=== PATIENT | female | born 1960 | race Caucasian/White ===

== ENCOUNTER 2022-07-27 10:30 | Outpatient (CLI) ==
[2022-07-27 10:56] LABS: BILIRUBIN,URINE NEGATIVE (NEGATIVE); CLARITY,URINE CLEAR (CLEAR); GLUCOSE, URINE (UA) NEGATIVE (NEGATIVE); KETONES,URINE (UA) 40 mg/dL (NEGATIVE); LEUKOCYTE ESTERASE, URINE LARGE (NEGATIVE); NITRITE,URINE POSITIVE (NEGATIVE); OCCULT BLOOD,URINE LARGE (NEGATIVE); PROTEIN,URINE 100 mg/dL (NEGATIVE); UROBILINOGEN,URINE 0.2 (NORMAL) E.U./dL (NORMAL)
[2022-07-27 11:02] LABS: WBC,URINE >25 /HPF (0-5)
[2022-07-27 11:03] LABS: BACTERIA,URINE Moderate /HPF (None Seen); SQUAMOUS EPITHELIAL CELL,UR FEW Squamous (<= Few); WBC CLUMPS,URINE PRESENT
== END 2022-07-27 10:31 | disposition home or self-care (01) ==
LOC: LAB.R 10:31
PROVIDERS: ATTEND Family Medicine
DX: N39.0 Urinary tract infection, site not specified (principal)
CPT/HCPCS: 81001; 87077; 87086; 87181

== ENCOUNTER 2022-08-05 06:26 | Outpatient (CLI) | payer SELFPAY | END 2022-08-05 06:27 | disposition critical access hospital (66) | LOC: EMS 06:26 | DX: R10.30 Lower abdominal pain, unspecified (principal); R10.2 Pelvic and perineal pain; G35 Multiple sclerosis | CPT/HCPCS: A0425; A0429 ==

== ENCOUNTER 2022-08-05 13:40 | Outpatient (CLI) | payer SELFPAY | END 2022-08-05 13:41 | disposition home or self-care (01) | LOC: EMS 13:40 | PROVIDERS: ATTEND Emergency Medicine | DX: T83.9XXA Unspecified complication of genitourinary prosthetic device, implant and graft, initial encounter (principal); G35 Multiple sclerosis; Z74.01 Bed confinement status | CPT/HCPCS: A0425; A0428 ==

== ENCOUNTER 2022-08-11 11:20 | Outpatient (CLI) | payer SELFPAY ==
[2022-08-11 11:43] LABS: BASOPHILS # (AUTO) 0.1 10^3/uL (0.0-0.1); BASOPHILS % (AUTO) 1.8 %; EOSINOPHILS # (AUTO) 0.2 10^3/uL (0.0-0.7); EOSINOPHILS % (AUTO) 5.1 %; HCT - HEMATOCRIT 37.1 % (37.0-47.0); HGB - HEMOGLOBIN 12.1 g/dL (12.0-16.0); LYMPHOCYTES # (AUTO) 0.4 10^3/uL (1.5-3.5); LYMPHOCYTES % (AUTO) 10.1 %; MEAN CORPUSCULAR HEMOGLOBIN 29.2 pg (27.0-31.0); MEAN CORPUSCULAR HGB CONC 32.6 g/dL (32.0-36.0); MEAN CORPUSCULAR VOLUME 89.4 fL (81.0-99.0); MEAN PLATELET VOLUME 9.2 fL (7.9-10.8); MONOCYTES # (AUTO) 0.6 10^3/uL (0.0-1.0); MONOCYTES % (AUTO) 15.7 %; NEUTROPHILS # (AUTO) 2.7 10^3/uL (1.5-6.6); PLT - PLATELET COUNT 407 10^3/uL (130-450); RED BLOOD COUNT 4.15 10^6/uL (4.20-5.40); RED CELL DISTRIBUTION WIDTH 14.2 % (12.0-15.0)
[2022-08-11 11:46] LABS: ALBUMIN 3.7 g/dL (3.2-5.5); ALBUMIN/GLOBULIN RATIO 1.3 (1.0-2.2); BILIRUBIN,TOTAL 0.8 mg/dL (0.2-1.0); CALCIUM 9.8 mg/dL (8.5-10.3); CREATININE 0.5 mg/dL (0.4-1.0); TOTAL PROTEIN 6.5 g/dL (6.7-8.2)
== END 2022-08-11 11:21 | disposition home or self-care (01) ==
LOC: LAB.R 11:20
PROVIDERS: ATTEND Family Medicine
DX: T83.511D Infection and inflammatory reaction due to indwelling urethral catheter, subsequent encounter (principal)
CPT/HCPCS: 80053; 85025

== ENCOUNTER 2022-08-18 10:01 | Outpatient (CLI) | payer SELFPAY ==
[2022-08-18 10:16] LABS: BASOPHILS # (AUTO) 0.1 10^3/uL (0.0-0.1); BASOPHILS % (AUTO) 1.6 %; EOSINOPHILS # (AUTO) 0.2 10^3/uL (0.0-0.7); EOSINOPHILS % (AUTO) 6.4 %; HCT - HEMATOCRIT 35.6 % (37.0-47.0); HGB - HEMOGLOBIN 11.4 g/dL (12.0-16.0); LYMPHOCYTES # (AUTO) 0.5 10^3/uL (1.5-3.5); LYMPHOCYTES % (AUTO) 14.1 %; MEAN CORPUSCULAR HEMOGLOBIN 28.7 pg (27.0-31.0); MEAN CORPUSCULAR VOLUME 89.7 fL (81.0-99.0); MEAN PLATELET VOLUME 9.2 fL (7.9-10.8); MONOCYTES # (AUTO) 0.3 10^3/uL (0.0-1.0); MONOCYTES % (AUTO) 8.5 %; NEUTROPHILS # (AUTO) 2.6 10^3/uL (1.5-6.6); NEUTROPHILS % (AUTO) 68.9 %; PLT - PLATELET COUNT 419 10^3/uL (130-450); RED BLOOD COUNT 3.97 10^6/uL (4.20-5.40); RED CELL DISTRIBUTION WIDTH 13.6 % (12.0-15.0); WHITE BLOOD COUNT 3.8 x10^3/uL (4.8-10.8)
[2022-08-18 10:29] LABS: ALBUMIN 3.6 g/dL (3.2-5.5); ALBUMIN/GLOBULIN RATIO 1.3 (1.0-2.2); BILIRUBIN,TOTAL 0.8 mg/dL (0.2-1.0); CALCIUM 9.4 mg/dL (8.5-10.3); CREATININE 0.4 mg/dL (0.4-1.0); POTASSIUM 3.7 mmol/L (3.5-5.0); TOTAL PROTEIN 6.3 g/dL (6.7-8.2)
== END 2022-08-18 10:02 | disposition home or self-care (01) ==
LOC: LAB.R 10:01
PROVIDERS: ATTEND Family Medicine
DX: T83.511D Infection and inflammatory reaction due to indwelling urethral catheter, subsequent encounter (principal)
CPT/HCPCS: 80053; 85025

== ENCOUNTER 2022-08-23 12:15 | Outpatient (CLI) | payer SELFPAY ==
[2022-08-23 12:30] LABS: BILIRUBIN,URINE NEGATIVE (NEGATIVE); GLUCOSE, URINE (UA) NEGATIVE (NEGATIVE); KETONES,URINE (UA) NEGATIVE (NEGATIVE); LEUKOCYTE ESTERASE, URINE MODERATE (NEGATIVE); NITRITE,URINE NEGATIVE (NEGATIVE); OCCULT BLOOD,URINE MODERATE (NEGATIVE); PROTEIN,URINE NEGATIVE (NEGATIVE); UROBILINOGEN,URINE 0.2 (NORMAL) E.U./dL (NORMAL)
[2022-08-23 12:36] LABS: CLARITY,URINE CLEAR (CLEAR)
[2022-08-23 13:10] LABS: BACTERIA,URINE Few /HPF (None Seen); RBC,URINE 0-5 /HPF (0-5); SQUAMOUS EPITHELIAL CELL,UR FEW Squamous (<= Few); WBC CLUMPS,URINE PRESENT; WBC,URINE >25 /HPF (0-5)
== END 2022-08-23 12:16 | disposition home or self-care (01) ==
LOC: LAB.R 12:15
PROVIDERS: ATTEND Family Medicine
DX: N39.0 Urinary tract infection, site not specified (principal)
CPT/HCPCS: 81001; 87086

== ENCOUNTER 2022-09-07 21:20 | Outpatient (CLI) | payer SELFPAY | END 2022-09-07 21:21 | disposition critical access hospital (66) | LOC: EMS 21:20 | DX: T83.021A Displacement of indwelling urethral catheter, initial encounter (principal); R10.2 Pelvic and perineal pain | CPT/HCPCS: A0425; A0429 ==

== ENCOUNTER 2022-09-07 21:33 | Emergency (ER) | payer SELFPAY ==
--- NOTE | 2022-09-07 21:32 | ED Physician Documentation ---
History of Present Illness - Stated complaint Stated Complaint: BLEEDING FROM CATHETER - History obtained from History obtained from: Patient, EMS - History of Present Illness Timing: How many days ago (2-3) - Additonal information Additional information: [place]. Patient is bedridden due to MS, has indwelling nolasco catheter for few years. She presents due to 1-2 days of leakage of urine around catheter as well as burning discomfort at nolasco insertion site and suprapubic discomfort and intermittent gross hematuria in nolasco bag as well as in urine that is leaking around the catheter. She says these symptoms have been associated with UTI in the past. Patient was T+R from this ED one month ago for similar c/o, given antibiotics and, per patient, she subsequently had ten days of IV antibiotic via a PICC line. She says she feels that the antibiotics and PICC were discontinued too early , as she felt she still had UTI. Denies fever Review of Systems Constitutional: denies: Fever, Chills, Sweats GI: denies: Abdominal Pain : reports: Incontinent, Hematuria PD PAST MEDICAL HISTORY - Past Medical History Past Medical History: Yes Cardiovascular: Hypertension Endocrine/Autoimmune: HyPOthyroidism Other Past Medical History: multiple sclerosis - Present Medications Home Medications: Ambulatory Orders Medication Instructions Recorded Confirmed Baclofen [Lioresal] 10 mg PO DAILY 08/05/22 09/07/22 Baclofen [Lioresal] 20 mg PO HS 08/05/22 09/07/22 Dalfampridine [Ampyra] 10 mg PO BID 08/05/22 09/07/22 Diroximel Fumarate [Vumerity] 2 tab PO BID 08/05/22 09/07/22 Levothyroxine Sodium [Synthroid] 1 tab PO DAILY 08/05/22 09/07/22 Oxybutynin [Ditropan] 5 mg PO BID 08/05/22 09/07/22 Potassium Chloride 2 tab PO DAILY 08/05/22 09/07/22 amLODIPine [Norvasc] 5 mg PO DAILY 08/05/22 09/07/22 Ciprofloxacin HCl [Cipro] 500 mg PO BID #20 tablet 09/07/22 - Allergies Allergies/Adverse Reactions: Allergies Allergy/AdvReac Type Severity Reaction Status Date / Time thyroid, pork Allergy Respiratory Verified 09/07/22 21:37 [From [place] Thyroid] tizanidine Allergy Respiratory Verified 09/07/22 21:37 PD ED PE NORMAL - Vitals Vital signs reviewed: Yes - General General: Alert and oriented X 3, No acute distress, Well developed/nourished - Cardiac Cardiac: RRR - Respiratory Respiratory: No respiratory distress, Clear bilaterally - Abdomen Abdomen: Soft, Non tender PD ED PE EXPANDED - Female Female : Security Control Room Officer present (RN L[place]), Other (Nolasco cather in place; no vaginal erythema nor discharge, no bleeding noted. There is clear yellow urine in nolasco collection bag. No grossly visible blood in urine) Results - Vitals Vitals: Oxygen O2 Source Room air - Labs Labs: Microbiology 09/07/22 21:58 Urine Culture - Preliminary Urine,Catheterized Laboratory Tests 09/07/22 21:58 Urine Color YELLOW Urine Clarity HAZY Urine pH 6.0 Ur Specific [place] 1.010 Urine Protein TRACE Urine Glucose (UA) NEGATIVE Urine Ketones NEGATIVE Urine Occult Blood LARGE H Urine Nitrite POSITIVE H Urine Bilirubin NEGATIVE Urine Urobilinogen 0.2 (NORMAL) Ur Leukocyte Esterase LARGE H Urine RBC 6-10 H Urine WBC >25 H Ur Epithelial Cells FEW Renal Tubular Ur Squamous Epith Cells FEW Squamous Urine Bacteria Few Ur Microscopic Review INDICATED Urine Culture Comments INDICATED PD MEDICAL DECISION MAKING - ED course Complexity details: reviewed old records, considered differential, d/w patient ED course: ED RN changed nolasco catheter due to patient reporting 1-2 days of leakage of urine around the device. Patient says her symptoms of urinary burning and suprapubic discomfort are c/w previous UTIs although her description is more of a chronic, indolent course rather than acute and intermittent. We discussed the concept of colonization of the bladder with bacteria with indwelling nolasco c sheba and she is quite familiar with this concept but insists the symptoms she has had the past 1-2 days are an exacerbation rather than ongoing. She is given 1 gram IM rocephin and rx cipro. No indication for emergent testing beyond UA and no indication for inpatient treatment. Departure - Departure Disposition: 01 Home, Self Care Clinical Impression: Chronic indwelling Nolasco catheter UTI (urinary tract infection) Qualifiers: Urinary tract infection type: catheter-associated UTI Indwelling urinary catheter type: indwelling urethral catheter Encounter type: initial encounter Qualified Code(s): T83.511A - Infection and inflammatory reaction due to indwelling urethral catheter, initial encounter Condition: Good Instructions: ED Catheter Care Elder, ED UTI Cystitis Female Prescriptions: Ciprofloxacin HCl [Cipro] 500 mg PO BID #20 tablet Comments: A prescription for an antibiotic (cipro) has been electronically submitted to [facility] pharmacy in [place]. Your catheter was changed today due to leaking around the catheter. Discharge Date/Time: 09/07/22 23:16
[2022-09-07] MEDS ORDERED: cefTRIAXone 1 GM VIAL IM STA (21:59)
[2022-09-07] MEDS ORDERED: LIDOCAINE 1% 2 ML VIAL MC ONE (21:59)
[2022-09-07] MEDS ORDERED: CIPROFLOXACIN 250 MG TABLET PO STA (22:00)
[2022-09-07 22:06] LABS: BILIRUBIN,URINE NEGATIVE (NEGATIVE); GLUCOSE, URINE (UA) NEGATIVE (NEGATIVE); KETONES,URINE (UA) NEGATIVE (NEGATIVE); LEUKOCYTE ESTERASE, URINE LARGE (NEGATIVE); NITRITE,URINE POSITIVE (NEGATIVE); OCCULT BLOOD,URINE LARGE (NEGATIVE); PROTEIN,URINE TRACE mg/dL (NEGATIVE); UROBILINOGEN,URINE 0.2 (NORMAL) E.U./dL (NORMAL)
[2022-09-07 22:08] LABS: CLARITY,URINE HAZY (CLEAR)
[2022-09-07] MEDS ORDERED: traMADol 50 MG TABLET PO STA (22:15)
[2022-09-07 22:18] LABS: BACTERIA,URINE Few /HPF (None Seen); EPITHELIAL CELLS,UR FEW Renal Tubular /HPF (<= Few); SQUAMOUS EPITHELIAL CELL,UR FEW Squamous (<= Few); WBC,URINE >25 /HPF (0-5)
[2022-09-07 22:25] VITALS: BP 124/94
== END 2022-09-07 23:16 | disposition home or self-care (01) ==
LOC: EDUNIT# → ED 21:33
DX: T83.511A Infection and inflammatory reaction due to indwelling urethral catheter, initial encounter (principal); T83.031A Leakage of indwelling urethral catheter, initial encounter; Y84.6 Urinary catheterization as the cause of abnormal reaction of the patient, or of later complication, without mention of misadventure at the time of the procedure; G35 Multiple sclerosis; I10 Essential (primary) hypertension; E03.9 Hypothyroidism, unspecified
CPT/HCPCS: 51702; 81001; 87077; 87086; 87181; 96372; 99284; A9270; 81003

== ENCOUNTER 2022-09-07 23:05 | Outpatient (CLI) | payer SELFPAY | END 2022-09-07 23:06 | disposition home or self-care (01) | LOC: EMS 23:05 | PROVIDERS: ATTEND Emergency Medicine | DX: Z74.01 Bed confinement status (principal) | CPT/HCPCS: A0425; A0428 ==

== ENCOUNTER 2022-11-30 13:56 | Outpatient (CLI) | payer SELFPAY ==
[2022-11-30 14:14] LABS: BILIRUBIN,URINE NEGATIVE (NEGATIVE); GLUCOSE, URINE (UA) NEGATIVE (NEGATIVE); KETONES,URINE (UA) NEGATIVE (NEGATIVE); LEUKOCYTE ESTERASE, URINE LARGE (NEGATIVE); NITRITE,URINE NEGATIVE (NEGATIVE); OCCULT BLOOD,URINE SMALL (NEGATIVE); PH,URINE 8.5 PH (5.0-7.5); PROTEIN,URINE 100 mg/dL (NEGATIVE); UROBILINOGEN,URINE 0.2 (NORMAL) E.U./dL (NORMAL)
[2022-11-30 14:25] LABS: CLARITY,URINE TURBID (CLEAR)
[2022-11-30 14:26] LABS: BACTERIA,URINE Moderate /HPF (None Seen); CRYSTALS,URINE 6-10 Triple Phos /LPF; MUCUS,URINE Marked Strands; SQUAMOUS EPITHELIAL CELL,UR RARE Squamous (<= Few)
== END 2022-11-30 13:57 | disposition home or self-care (01) ==
LOC: LAB 13:56
PROVIDERS: ATTEND Internal Medicine
DX: R82.90 Unspecified abnormal findings in urine (principal)
CPT/HCPCS: 81001; 87077; 87086; 87181

== ENCOUNTER 2022-12-12 12:46 | Outpatient (CLI) | payer SELFPAY ==
--- NOTE | 2022-12-12 17:47 | CT Report ---
PROCEDURE: ABDOMEN/PELVIS WO INDICATIONS: HIST RENAL STONES TECHNIQUE: Noncontrast 5 mm thick sections acquired from the diaphragms to the symphysis. 5 mm coronal and sagi ttal reformats were then performed. For radiation dose reduction, the following was used: automated exposure control, adjustment of mA and/or kV according to patient size. COMPARISON: None. FINDINGS: Image quality: Excellent. ABDOMEN: Lung bases: Platelike bibasilar atelectatic changes and calcified right lung base nodule. Heart size is normal. No hiatal hernia. Kidneys: Staghorn calcification filling much of the right posterior intrarenal collecting system exte nding partly into the renal pelvis. Hounsfield units measured at 980. There is probably urothelial th ickening of the renal pelvis. There is mild proximal right hydroureter and mild periureteric inflamma tion. No ureteral calculi. The left kidney contains a nonobstructing rectangular 1.1 cm intrarenal pe lvic calcification with Hounsfield units of 606 and a punctate nonobstructing lower pole calcificatio n. No hydronephrosis, hydroureter, or ureteral calculus. Urinary bladder: There is a Friedman catheter balloon filling much of the urinary bladder. There appears to be a calculus at the urethrovesical junction adjacent to the follicular catheter tubing measuring 8 mm. Other Solid organs: Liver and spleen are normal in size. Gallbladder is surgically absent. Pancrea s is normal in contours. No adrenal nodules. Peritoneum and bowel: The stomach is within normal limits. Small bowel loops are decompressed. Increa sed quantity of solid stool present throughout loops of colon. No pericolonic inflammation. Nodes and vessels: No retroperitoneal or mesenteric adenopathy by size criteria. Aorta and inferior vena cava are normal in caliber. Miscellaneous: No ventral hernias. PELVIS: Genitourinary: The uterus is absent. Ovarian tissue is not seen on CT. Miscellaneous: No inguinal hernias or adenopathy. Moderate anterior and posterior pelvic floor prola pse. Bones: No suspicious bony lesions. Mild central superior endplate depression of T12. No other suspic ious bone lesions. There is exaggerated lumbar lordosis. IMPRESSION: 1. Staghorn calculus in the right kidney as described. There is likely reactive urothelial thickening . 2. No evidence of obstructive uropathy. 3. Left intrarenal calculi. Less extensive than the right. 4. 8mm urinary bladder calculus. The bladder is catheterized. 5. Mild central T12 superior endplate compression fracture, probably osteoporotic given morphology. Reviewed by: Radha Theodore MD on 12/12/2022 4:46 PM [place] Approved by: Radha Theodore MD on 12/12/2022 4:46 PM [place] Station ID: [id number]
== END 2022-12-12 12:47 | disposition home or self-care (01) ==
LOC: DI 12:46
PROVIDERS: ATTEND Family Medicine
DX: N20.0 Calculus of kidney (principal); N21.0 Calculus in bladder; M48.54XA Collapsed vertebra, not elsewhere classified, thoracic region, initial encounter for fracture; Z87.442 Personal history of urinary calculi

== ENCOUNTER 2022-12-21 16:23 | Outpatient (CLI) | payer MEDICARE ==
[2022-12-21 16:40] LABS: BASOPHILS # (AUTO) 0.1 10^3/uL (0.0-0.1); BASOPHILS % (AUTO) 1.1 %; EOSINOPHILS # (AUTO) 0.2 10^3/uL (0.0-0.7); EOSINOPHILS % (AUTO) 3.4 %; HCT - HEMATOCRIT 39.4 % (37.0-47.0); HGB - HEMOGLOBIN 12.7 g/dL (12.0-16.0); LYMPHOCYTES # (AUTO) 0.4 10^3/uL (1.5-3.5); LYMPHOCYTES % (AUTO) 6.7 %; MEAN CORPUSCULAR HEMOGLOBIN 28.8 pg (27.0-31.0); MEAN CORPUSCULAR HGB CONC 32.2 g/dL (32.0-36.0); MEAN CORPUSCULAR VOLUME 89.3 fL (81.0-99.0); MEAN PLATELET VOLUME 9.1 fL (7.9-10.8); MONOCYTES # (AUTO) 0.5 10^3/uL (0.0-1.0); MONOCYTES % (AUTO) 9.1 %; NEUTROPHILS # (AUTO) 4.2 10^3/uL (1.5-6.6); NEUTROPHILS % (AUTO) 79.3 %; PLT - PLATELET COUNT 392 10^3/uL (130-450); RED BLOOD COUNT 4.41 10^6/uL (4.20-5.40); RED CELL DISTRIBUTION WIDTH 13.4 % (12.0-15.0); WHITE BLOOD COUNT 5.3 x10^3/uL (4.8-10.8)
[2022-12-21 16:50] LABS: ALBUMIN 3.7 g/dL (3.2-5.5); ALBUMIN/GLOBULIN RATIO 1.3 (1.0-2.2); BILIRUBIN,TOTAL 0.9 mg/dL (0.2-1.0); CALCIUM 9.4 mg/dL (8.5-10.3); CREATININE 0.4 mg/dL (0.4-1.0); TOTAL PROTEIN 6.5 g/dL (6.7-8.2)
== END 2022-12-21 23:59 | disposition home or self-care (01) ==
LOC: LAB.R 16:23
PROVIDERS: ATTEND Psychiatry & Neurology Neurology
DX: G35 Multiple sclerosis (principal)
CPT/HCPCS: 80053; 85025

== ENCOUNTER 2022-12-30 14:47 | Outpatient (CLI) | payer MEDICARE | END 2022-12-30 14:48 | disposition home or self-care (01) | LOC: LAB 14:47 | PROVIDERS: ATTEND Specialist | DX: N39.0 Urinary tract infection, site not specified (principal); Z87.440 Personal history of urinary (tract) infections | CPT/HCPCS: 87077; 87086; 87181 ==

== ENCOUNTER 2023-02-27 14:42 | Outpatient (CLI) | payer MEDICARE | END 2023-02-27 23:59 | disposition critical access hospital (66) | LOC: EMS 14:42 | DX: R51.9 Headache, unspecified (principal); R60.0 Localized edema; R23.8 Other skin changes | CPT/HCPCS: A0425; A0429 ==

== ENCOUNTER 2023-02-27 14:50 | Emergency (ER) | payer MEDICARE ==
--- NOTE | 2023-02-27 14:56 | ED Physician Documentation ---
PD HPI HEENT - Stated complaint Stated Complaint: L SIDE FACIAL PX - History obtained from History obtained from: Patient - History of Present Illness Timing - onset: How many days ago (4) Timing - duration: Days (4) Timing - details: Gradual onset (4 days ago - onset of left forehead and scalp pain extended to periorbital area. Developed start of blistering tender rash 2 days ago same area. Online search led to likely shingles. Had discussion with pmd office today and referred to ER to ensure left eye not involved (rash and pain periorbital).), Still present Location: Other (left frontal scalp and forehead to periorbital area.) Improves: No: Medication (tried tylenol and ibuprofen without improvement. Severe pain last night into today.) Associated symptoms: Facial swelling (just in area of rash.). No: Fever, Congestion, Headache Similar symptoms before: Has not had sx before Recently seen: Clinic (discussed with PCP today and referred to ER.) Review of Systems Constitutional: reports: Myalgias, Fatigue. denies: Fever, Chills Eyes: denies: Loss of vision, Photophobia Nose: denies: Rhinorrhea / runny nose, Congestion Throat: denies: Sore throat GI: reports: Nausea. 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 HEENT: Tonsil/Adenoidectomy - Present Medications Home Medications: Ambulatory Orders Medication Instructions Recorded Confirmed Baclofen [Lioresal] 10 mg PO BID 08/05/22 02/27/23 Baclofen [Lioresal] 20 mg PO HS 08/05/22 02/27/23 Dalfampridine [Ampyra] 10 mg PO BID 08/05/22 02/27/23 Levothyroxine Sodium [Synthroid] 1 tab PO DAILY 08/05/22 02/27/23 Oxybutynin [Ditropan] 5 mg PO TID 08/05/22 02/27/23 Potassium Chloride 2 tab PO DAILY 08/05/22 02/27/23 amLODIPine [Norvasc] 5 mg PO DAILY 08/05/22 02/27/23 Amitriptyline [Elavil] 10 mg PO QPM 20 Days #20 tablet 02/27/23 Ibuprofen [Motrin] 1 tablet PO Q8H PRN 02/27/23 02/27/23 Magnesium Oxide [Magnesium] 400 mg PO DAILY 02/27/23 02/27/23 Mupirocin 2% Oint [Bactroban 2% 1 applic TOP TID #15 gm 02/27/23 Oint] Ondansetron Odt [Zofran] 4 mg TL Q6H PRN #20 tablet 02/27/23 Ospemifene [Osphena] 60 mg PO DAILY 02/27/23 02/27/23 Valacyclovir HCl [Valtrex] 1,000 mg PO TID 7 Days #20 tablet 02/27/23 dexAMETHasone [Decadron] 4 mg PO DAILY #5 tablet 02/27/23 oxyCODONE [Roxicodone] 5 mg PO Q8H PRN #20 tablet 02/27/23 traMADol [Ultram] 50 mg PO TID PRN 02/27/23 02/27/23 - Allergies Allergies/Adverse Reactions: Allergies Allergy/AdvReac Type Severity Reaction Status Date / Time latex Allergy Rash Verified 02/27/23 15:03 thyroid, pork Allergy Respiratory Verified 09/07/22 21:37 [From [place] Thyroid] tizanidine Allergy Respiratory Verified 09/07/22 21:37 vancomycin Allergy Rash Verified 02/27/23 15:03 - Social History Does the pt smoke?: No Smoking Status: Never smoker Does the pt drink ETOH?: No Does the pt have substance abuse?: No - Immunizations Immunizations are current?: No - POLST Patient has POLST: No PD ED PE NORMAL - Vitals Vital signs reviewed: Yes - General General: Alert and oriented X 3, Well developed/nourished, Other (appears in pain but is pleasant and calm. ) - HEENT HEENT: PERRL, EOMI, Other (left periorbital area and forehead to frontal scalp with patchy blistering rash with yellowish crusting in areas. no purulence. rash includes upper eyelid. No rash on nose. ) PD ED PE EXPANDED - Eyes Eyes: Anterior chambers clear, Normal fundi. No: Corneal FB, Corneal abrasion, Corneal ulcer, Fluorescein uptake Results - Vitals Vitals: Vital Signs - 24 hr 02/27/23 02/27/23 14:58 16:14 Temperature 36.7 C Heart Rate 88 78 Respiratory 18 16 Rate Blood Pressure 159/86 H 154/78 H O2 Saturation 98 98 Oxygen O2 Source Room air PD Medical Decision Making - ED course Complexity details: considered differential (area of pain and rash c/w shingles of the V1 (opthalmic nerve). Does not appear to involve cornea. ), d/w patient Departure - Departure Disposition: 01 Home, Self Care Clinical Impression: Shingles outbreak Qualifiers: Herpes zoster complications: without complications Qualified Code(s): B02.9 - Zoster without complications Condition: Stable Record reviewed to determine appropriate education?: Yes Instructions: ED Shingles Prescriptions: Mupirocin 2% Oint [Bactroban 2% Oint] 1 applic TOP TID #15 gm dexAMETHasone [Decadron] 4 mg PO DAILY #5 tablet Amitriptyline [Elavil] 10 mg PO QPM 20 Days #20 tablet oxyCODONE [Roxicodone] 5 mg PO Q8H PRN #20 tablet PRN Reason: Pain Valacyclovir HCl [Valtrex] 1,000 mg PO TID 7 Days #20 tablet Ondansetron Odt [Zofran] 4 mg TL Q6H PRN #20 tablet PRN Reason: Nausea / Vomiting Comments: This does look like a shingles outbreak as you surmised. I do not see any involvement of the eye itself but just the eyelids. We can treat this with an antiviral Ada acyclovir 3 times daily for a week. Typically will use a anti-inflammatory to help reduce nerve inflammation. Dexamethasone daily for 5 days. Also medications to help decrease nerve irritation can try to shorten the course of this. Amitriptyline 10 mg nightly for the next 3 weeks. Regarding the rash itself, cleanse gently with soap and water couple times a day and apply lightly some topical antibiotic ointment mupirocin. For the pain, use Tylenol 650 mg 4 times daily. To that add oxycodone every 6-8 hours if needed for pain. I sent new prescriptions to [facility] pharmacy. I am prescribing a short course of narcotic pain medication for you. These are potentially dangerous and addictive medications that should be used carefully. These medications may constipate you. Take an [id number] stool softener such as docusate twice daily with plenty of water while taking these medications. If you go 24 hours without a bowel movement, take [id number] MiraLAX, per package instructions. Do not drink or drive while taking these medications. If you received narcotic or sedating medications while in the emergency department do not drive for 24 hours. Store this medication in a safe, secure place and out of reach of children. It is a violation of federal law to give or sell this medication to another person or to use in a manner other than prescribed. The ED will not refill narcotic prescriptions, including prescriptions lost or stolen. You can dispose of unwanted medications at the [facility]'s office or at several pharmacies such as [facility]. Discharge Date/Time: 02/27/23 16:16
[2023-02-27] MEDS ORDERED: KETOROLAC 30 MG/ML VIAL IM STA (15:14)
[2023-02-27] MEDS ORDERED: DEXAMETHASONE 10 MG/ML VIAL PO STA (15:14)
[2023-02-27] MEDS ORDERED: HYDROmorphone 1 MG/ML CARPUJECT IM STA (15:14)
[2023-02-27] MEDS ORDERED: CHERRY SYRUP 10 ML UDC PO ONE (15:14)
[2023-02-27] MEDS ORDERED: valACYclovir 500 MG TABLET PO STA (15:14)
[2023-02-27] MEDS ORDERED: ONDANSETRON ODT 4 MG TABLET TL STA (15:35)
[2023-02-27] MEDS ORDERED: MUPIROCIN 2% OINT 1 GM TOP STA (15:40)
--- OUTSIDE RECORDS SUMMARY | 2023-02-27 16:05 | EXTERNAL MEDICAL SUMMARY RPT | Continuity of Care Document ---
:1960 Author Organization [facility] Address [address] [place] [address] Phone Allergies No information. Encounters No information. Functional Status No information. Immunizations No information. Medications date description facility 2022-12-26 00:00 Amlodipine [facility] 2022-12-26 00:00 Baclofen [facility] 2022-12-26 00:00 Potassium Chloride [facility] 2022-12-26 00:00 Aspirin [facility] 2022-12-26 00:00 Ascorbate Calcium (Vitamin C) [facility] 2022-12-26 00:00 Tramadol [facility] 2022-12-26 00:00 Oxybutynin Chloride [facility] 2022-12-26 00:00 Levothyroxine [facility] 2022-12-26 00:00 Methenamine Hippurate [facility] Problems date description facility 2022-12-26 00:00 Disorder of thyroid [facility] 2022-12-26 00:00 Depression [facility] 2022-12-26 00:00 Multiple sclerosis [facility] 2022-12-26 00:00 Hypertension [facility] 2022-12-26 00:00 Chronic urinary tract infection [facility] Procedures No information. Results/Labs test date author facility value unit interpret ation Result panel 1 (unknown) (no (unknown) (unknown) (no value) (units (unk nown) date) unknown) (unknown) (no (unknown) (unknown) 12/26/22 (units (unkno wn) date) unknown) (unknown) (no (unknown) (unknown) 12/26/22] (units (unkn own) date) unknown) (unknown) (no (unknown) (unknown) [id number] (units (unkno wn) date) unknown) (unknown) (no (unknown) (unknown) Age/Sex: 62 / F (units (unknown) date) Date of Service: unknown) (unknown) (no (unknown) (unknown) Allergies (units (unkn own) date) unknown) (unknown) (no (unknown) (unknown) [place], [place] (units ( unknown) date) [id number] unknown) (unknown) (no (unknown) (unknown) Attending Dr: (units ( unknown) date) Hang Andrade MD unknown) (unknown) (no (unknown) (unknown) Brother Kidney (units (unknown) date) stones unknown) (unknown) (no (unknown) (unknown) Chronic UTI (units (un known) date) unknown) (unknown) (no (unknown) (unknown) : 1960 (units (unknown) date) Acct:[id number] unknown) (unknown) (no (unknown) (unknown) Dept at (units (unkno wn) date) . unknown) (unknown) (no (unknown) (unknown) Documented By: (units (unknown) date) Hang Andrade MD unknown) 12/26/22 1306 (unknown) (no (unknown) (unknown) Draft (units (unkno wn) date) unknown) (unknown) (no (unknown) (unknown) Family History (units (unknown) date) (Updated 12/26/22 unknown) @ 13:14 by Olive Vargas RN) (unknown) (no (unknown) (unknown) Father Cancer (units ( unknown) date) unknown) (unknown) (no (unknown) (unknown) Gout (units (unkno wn) date) unknown) (unknown) (no (unknown) (unknown) H/O vaginal (units (un known) date) hysterectomy unknown) (unknown) (no (unknown) (unknown) History of (units (unk nown) date) appendectomy unknown) (unknown) (no (unknown) (unknown) Hx of (units (unkno wn) date) cholecystectomy unknown) (unknown) (no (unknown) (unknown) Hyperlipidemia (units (unknown) date) unknown) (unknown) (no (unknown) (unknown) Hypertension (units (u nknown) date) unknown) (unknown) (no (unknown) (unknown) Intake Note: (units (u nknown) date) unknown) (unknown) (no (unknown) (unknown) Intake performed (units (unknown) date) by: unknown) Olive Vargas (unknown) (no (unknown) (unknown) Intake (units (unkno wn) date) unknown) (unknown) (no (unknown) (unknown) Intake- Clincial (units (unknown) date) Staff unknown) (unknown) (no (unknown) (unknown) [facility] (units (unknown) date) unknown) (unknown) (no (unknown) (unknown) Kidney stones (units ( unknown) date) unknown) (unknown) (no (unknown) (unknown) Loc: [facility] (units (unkno wn) date) unknown) (unknown) (no (unknown) (unknown) Medical History (units (unknown) date) (Updated 12/26/22 unknown) @ 13:09 by Olive Vargas RN) (unknown) (no (unknown) (unknown) Medications (units (un known) date) unknown) (unknown) (no (unknown) (unknown) Mother Cancer (units ( unknown) date) unknown) (unknown) (no (unknown) (unknown) PFSH (units (unkno wn) date) unknown) (unknown) (no (unknown) (unknown) Patient: (units (unkno wn) date) Awa Arce unknown) MR#: [id number] (unknown) (no (unknown) (unknown) 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 (unknown) (no (unknown) (unknown) Reason For Visit (units (unknown) date) unknown) (unknown) (no (unknown) (unknown) Signed By: (units (unk nown) date) unknown) (unknown) (no (unknown) (unknown) Smoking Status: (units (unknown) date) Never smoker unknown) (unknown) (no (unknown) (unknown) Social History (units (unknown) date) (Updated 12/26/22 unknown) @ 13:14 by Olive Vargas RN) (unknown) (no (unknown) (unknown) Surgical History (units (unknown) date) (Updated 12/26/22 unknown) @ 13:09 by Olive Vargas RN) (unknown) (no (unknown) (unknown) This note may (units ( unknown) date) have been all or unknown) partially generated using voice recognition (unknown) (no (unknown) (unknown) Thyroid disease (units (unknown) date) unknown) (unknown) (no (unknown) (unknown) Urology Office (units (unknown) date) Visit unknown) (unknown) (no (unknown) (unknown) 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) - recurrent UTI unknown) (unknown) (no (unknown) (unknown) [History (units (unkno wn) date) Confirmed unknown) 12/26/22] (unknown) (no (unknown) (unknown) alcohol intake: (units (unknown) date) never unknown) (unknown) (no (unknown) (unknown) amlodipine 5 mg (units (unknown) date) tablet 5 mg PO unknown) DAILY 12/26/22 [History Confirmed 12/26/22] (unknown) (no (unknown) (unknown) armora thyroid (units (unknown) date) Allergy (Uncoded unknown) 12/26/22 13:07) (unknown) (no (unknown) (unknown) baclofen 10 mg (units (unknown) date) tablet 10 mg PO unknown) DAILY 12/26/22 [History Confirmed 12/26/22] (unknown) (no (unknown) (unknown) caffeine: Yes (units ( unknown) date) unknown) (unknown) (no (unknown) (unknown) dalfampridine 10 (units (unknown) date) mg tablet,extended unknown) release,12 hr 10 mg PO Q12H 12/26/22 (unknown) (no (unknown) (unknown) education level: (units (unknown) date) college unknown) (unknown) (no (unknown) (unknown) have occurred. If (units (unknown) date) there are any unknown) questions, please contact the Medical Records (unknown) (no (unknown) (unknown) levothyroxine 137 (units (unknown) date) mcg capsule 137 unknown) mcg PO DAILY 12/26/22 [History Confirmed (unknown) (no (unknown) (unknown) marital status: (units (unknown) date) unknown) (unknown) (no (unknown) (unknown) may occur. (units (unk nown) date) Occasional unknown) wrong-word or 'sound-alike' substitutions may have (unknown) (no (unknown) (unknown) number of (units (unkn own) date) children: 3 unknown) (unknown) (no (unknown) (unknown) occupational (units (u nknown) date) status: previously unknown) employed (unknown) (no (unknown) (unknown) occurred due to (units (unknown) date) the inherent unknown) limitations of voice recognition software. Please (unknown) (no (unknown) (unknown) oxybutynin (units (unk nown) date) chloride 5 mg unknown) tablet 5 mg PO DAILY 12/26/22 [History Confirmed (unknown) (no (unknown) (unknown) potassium (units (unkn own) date) chloride 20 mEq unknown) tablet,extended release 20 meq PO BID 12/26/22 (unknown) (no (unknown) (unknown) read the note (units ( unknown) date) carefully and unknown) recognize, using context, where these substitutions (unknown) (no (unknown) (unknown) software. (units (unkn own) date) Although every unknown) effort is made to edit content, cable installer repairer errors (unknown) (no (unknown) (unknown) tramadol 50 mg (units (unknown) date) tablet 50 mg PO unknown) BID PRN 12/26/22 [History Confirmed 12/26/22] (unknown) (no (unknown) (unknown) tzanidine Allergy (units (unknown) date) (Uncoded 12/26/22 unknown) 13:07) (unknown) (no (unknown) (unknown) vancomycin (units (unk nown) date) Allergy (Uncoded unknown) 12/26/22 13:07) Result panel 2 (unknown) (no (unknown) (unknown) (no value) (units (unk nown) date) unknown) (unknown) (no (unknown) (unknown) 12/26/22 (units (unkno wn) date) unknown) (unknown) (no (unknown) (unknown) 12/26/22] (units (unkn own) date) unknown) (unknown) (no (unknown) (unknown) [id number] (units (unkno wn) date) unknown) (unknown) (no (unknown) (unknown) Age/Sex: 62 / F (units (unknown) date) Date of Service: unknown) (unknown) (no (unknown) (unknown) Allergies (units (unkn own) date) unknown) (unknown) (no (unknown) (unknown) [place] (units ( unknown) date) [id number] unknown) (unknown) (no (unknown) (unknown) Attending Dr: (units ( unknown) date) Hang Andrade MD unknown) (unknown) (no (unknown) (unknown) Brother Kidney (units (unknown) date) stones unknown) (unknown) (no (unknown) (unknown) Chronic UTI (units (un known) date) unknown) (unknown) (no (unknown) (unknown) : 1960 (units (unknown) date) Acct:[id number] unknown) (unknown) (no (unknown) (unknown) Dept at (units (unkno wn) date) . unknown) (unknown) (no (unknown) (unknown) Documented By: (units (unknown) date) Hang Andrade MD unknown) 12/26/22 1306 (unknown) (no (unknown) (unknown) Draft (units (unkno wn) date) unknown) (unknown) (no (unknown) (unknown) Family History (units (unknown) date) (Updated 12/26/22 unknown) @ 13:14 by Olive Vargas RN) (unknown) (no (unknown) (unknown) Father Cancer (units ( unknown) date) unknown) (unknown) (no (unknown) (unknown) Gout (units (unkno wn) date) unknown) (unknown) (no (unknown) (unknown) H/O vaginal (units (un known) date) hysterectomy unknown) (unknown) (no (unknown) (unknown) History of (units (unk nown) date) appendectomy unknown) (unknown) (no (unknown) (unknown) Hx of (units (unkno wn) date) cholecystectomy unknown) (unknown) (no (unknown) (unknown) Hyperlipidemia (units (unknown) date) unknown) (unknown) (no (unknown) (unknown) Hypertension (units (u nknown) date) unknown) (unknown) (no (unknown) (unknown) Intake Note: (units (u nknown) date) unknown) (unknown) (no (unknown) (unknown) Intake performed (units (unknown) date) by: unknown) Olive Vargas (unknown) (no (unknown) (unknown) Intake (units (unkno wn) date) unknown) (unknown) (no (unknown) (unknown) Intake- Clincial (units (unknown) date) Staff unknown) (unknown) (no (unknown) (unknown) Is last menstrual (units (unknown) date) period known: Yes unknown) (unknown) (no (unknown) (unknown) [facility] (units (unknown) date) unknown) (unknown) (no (unknown) (unknown) Kidney stones (units ( unknown) date) unknown) (unknown) (no (unknown) (unknown) Last Menstural (units (unknown) date) Cycle + Details unknown) (unknown) (no (unknown) (unknown) Loc: [facility] (units (unkno wn) date) unknown) (unknown) (no (unknown) (unknown) Medical History (units (unknown) date) (Updated 12/26/22 unknown) @ 13:09 by Olive Vargas RN) (unknown) (no (unknown) (unknown) Medications (units (un known) date) unknown) (unknown) (no (unknown) (unknown) Mother Cancer (units ( unknown) date) unknown) (unknown) (no (unknown) (unknown) Other Menstrual (units (unknown) date) Period: Other unknown) (1983) (unknown) (no (unknown) (unknown) PFSH (units (unkno wn) date) unknown) (unknown) (no (unknown) (unknown) Patient: (units (unkno wn) date) Awa Arce G unknown) MR#: [id number] (unknown) (no (unknown) (unknown) 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 (unknown) (no (unknown) (unknown) Reason For Visit (units (unknown) date) unknown) (unknown) (no (unknown) (unknown) Signed By: (units (unk nown) date) unknown) (unknown) (no (unknown) (unknown) Smoking Status: (units (unknown) date) Never smoker unknown) (unknown) (no (unknown) (unknown) Social History (units (unknown) date) (Updated 12/26/22 unknown) @ 13:14 by Olive Vargas RN) (unknown) (no (unknown) (unknown) Surgical History (units (unknown) date) (Updated 12/26/22 unknown) @ 13:09 by Olive Vargas RN) (unknown) (no (unknown) (unknown) This note may (units ( unknown) date) have been all or unknown) partially generated using voice recognition (unknown) (no (unknown) (unknown) Thyroid disease (units (unknown) date) unknown) (unknown) (no (unknown) (unknown) Urology Office (units (unknown) date) Visit unknown) (unknown) (no (unknown) (unknown) 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) - recurrent UTI unknown) (unknown) (no (unknown) (unknown) [History (units (unkno wn) date) Confirmed unknown) 12/26/22] (unknown) (no (unknown) (unknown) alcohol intake: (units (unknown) date) never unknown) (unknown) (no (unknown) (unknown) amlodipine 5 mg (units (unknown) date) tablet 5 mg PO unknown) DAILY 12/26/22 [History Confirmed 12/26/22] (unknown) (no (unknown) (unknown) armora thyroid (units (unknown) date) Allergy (Uncoded unknown) 12/26/22 13:07) (unknown) (no (unknown) (unknown) baclofen 10 mg (units (unknown) date) tablet 10 mg PO unknown) DAILY 12/26/22 [History Confirmed 12/26/22] (unknown) (no (unknown) (unknown) caffeine: Yes (units ( unknown) date) unknown) (unknown) (no (unknown) (unknown) dalfampridine 10 (units (unknown) date) mg tablet,extended unknown) release,12 hr 10 mg PO Q12H 12/26/22 (unknown) (no (unknown) (unknown) education level: (units (unknown) date) college unknown) (unknown) (no (unknown) (unknown) have occurred. If (units (unknown) date) there are any unknown) questions, please contact the Medical Records (unknown) (no (unknown) (unknown) levothyroxine 137 (units (unknown) date) mcg capsule 137 unknown) mcg PO DAILY 12/26/22 [History Confirmed (unknown) (no (unknown) (unknown) marital status: (units (unknown) date) unknown) (unknown) (no (unknown) (unknown) may occur. (units (unk nown) date) Occasional unknown) wrong-word or 'sound-alike' substitutions may have (unknown) (no (unknown) (unknown) number of (units (unkn own) date) children: 3 unknown) (unknown) (no (unknown) (unknown) occupational (units (u nknown) date) status: previously unknown) employed (unknown) (no (unknown) (unknown) occurred due to (units (unknown) date) the inherent unknown) limitations of voice recognition software. Please (unknown) (no (unknown) (unknown) oxybutynin (units (unk nown) date) chloride 5 mg unknown) tablet 5 mg PO DAILY 12/26/22 [History Confirmed (unknown) (no (unknown) (unknown) potassium (units (unkn own) date) chloride 20 mEq unknown) tablet,extended release 20 meq PO BID 12/26/22 (unknown) (no (unknown) (unknown) read the note (units ( unknown) date) carefully and unknown) recognize, using context, where these substitutions (unknown) (no (unknown) (unknown) software. (units (unkn own) date) Although every unknown) effort is made to edit content, cable installer repairer errors (unknown) (no (unknown) (unknown) tramadol 50 mg (units (unknown) date) tablet 50 mg PO unknown) BID PRN 12/26/22 [History Confirmed 12/26/22] (unknown) (no (unknown) (unknown) tzanidine Allergy (units (unknown) date) (Uncoded 12/26/22 unknown) 13:07) (unknown) (no (unknown) (unknown) vancomycin (units (unk nown) date) Allergy (Uncoded unknown) 12/26/22 13:07) Result panel 3 (unknown) (no (unknown) (unknown) (no value) (units (unk nown) date) unknown) (unknown) (no (unknown) (unknown) 12/26/22 (units (unkno wn) date) unknown) (unknown) (no (unknown) (unknown) 12/26/22] (units (unkn own) date) unknown) (unknown) (no (unknown) (unknown) 13:19 (units (unkno wn) date) unknown) (unknown) (no (unknown) (unknown) [id number] (units (unkno wn) date) unknown) (unknown) (no (unknown) (unknown) Age/Sex: 62 / F (units (unknown) date) Date of Service: unknown) (unknown) (no (unknown) (unknown) Allergies (units (unkn own) date) unknown) (unknown) (no (unknown) (unknown) [place], [place] (units ( unknown) date) [id number] unknown) (unknown) (no (unknown) (unknown) Attending Dr: (units ( unknown) date) Hang Andrade MD unknown) (unknown) (no (unknown) (unknown) BMI 37.0 (units (unkno wn) date) unknown) (unknown) (no (unknown) (unknown) BP 143/78 H (units (un known) date) unknown) (unknown) (no (unknown) (unknown) Blood Pressure (units (unknown) date) Location Lt radial unknown) (unknown) (no (unknown) (unknown) Brother Kidney (units (unknown) date) stones unknown) (unknown) (no (unknown) (unknown) Chronic UTI (units (un known) date) unknown) (unknown) (no (unknown) (unknown) : 1960 (units (unknown) date) Acct:[id number] unknown) (unknown) (no (unknown) (unknown) Dept at (units (unkno wn) date) . unknown) (unknown) (no (unknown) (unknown) Documented By: (units (unknown) date) Hang Andrade MD unknown) 12/26/22 1306 (unknown) (no (unknown) (unknown) Draft (units (unkno wn) date) unknown) (unknown) (no (unknown) (unknown) Family History (units (unknown) date) (Updated 12/26/22 unknown) @ 13:14 by Olive Vargas RN) (unknown) (no (unknown) (unknown) Father Cancer (units ( unknown) date) unknown) (unknown) (no (unknown) (unknown) Gout (units (unkno wn) date) unknown) (unknown) (no (unknown) (unknown) H/O vaginal (units (un known) date) hysterectomy unknown) (unknown) (no (unknown) (unknown) Health Management (units (unknown) date) reviewed with unknown) patient: No (unknown) (no (unknown) (unknown) Health Management (units (unknown) date) unknown) (unknown) (no (unknown) (unknown) Height 5 ft (units (un known) date) unknown) (unknown) (no (unknown) (unknown) History of (units (unk nown) date) appendectomy unknown) (unknown) (no (unknown) (unknown) Hx of (units (unkno wn) date) cholecystectomy unknown) (unknown) (no (unknown) (unknown) Hyperlipidemia (units (unknown) date) unknown) (unknown) (no (unknown) (unknown) Hypertension (units (u nknown) date) unknown) (unknown) (no (unknown) (unknown) Intake Note: (units (u nknown) date) unknown) (unknown) (no (unknown) (unknown) Intake performed (units (unknown) date) by: unknown) Olive Vargas (unknown) (no (unknown) (unknown) Intake (units (unkno wn) date) unknown) (unknown) (no (unknown) (unknown) Intake- Clincial (units (unknown) date) Staff unknown) (unknown) (no (unknown) (unknown) Is last menstrual (units (unknown) date) period known: Yes unknown) (unknown) (no (unknown) (unknown) [facility] (units (unknown) date) unknown) (unknown) (no (unknown) (unknown) Kidney stones (units ( unknown) date) unknown) (unknown) (no (unknown) (unknown) Last Menstural (units (unknown) date) Cycle + Details unknown) (unknown) (no (unknown) (unknown) Loc: [facility] (units (unkno wn) date) unknown) (unknown) (no (unknown) (unknown) Medical History (units (unknown) date) (Updated 12/26/22 unknown) @ 13:09 by Olive Vargas RN) (unknown) (no (unknown) (unknown) Medications (units (un known) date) unknown) (unknown) (no (unknown) (unknown) Mother Cancer (units ( unknown) date) unknown) (unknown) (no (unknown) (unknown) Other Menstrual (units (unknown) date) Period: Other unknown) (1983) (unknown) (no (unknown) (unknown) PFSH (units (unkno wn) date) unknown) (unknown) (no (unknown) (unknown) Patient: (units (unkno wn) date) Awa Arce unknown) MR#: [id number] (unknown) (no (unknown) (unknown) Position Sitting (units (unknown) date) unknown) (unknown) (no (unknown) (unknown) 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 Pt's daughter is present. (unknown) (no (unknown) (unknown) Pulse 80 (units (unkno wn) date) unknown) (unknown) (no (unknown) (unknown) Pulse Source NIBP (units (unknown) date) unknown) (unknown) (no (unknown) (unknown) Reason For Visit (units (unknown) date) unknown) (unknown) (no (unknown) (unknown) Respiration 16 (units (unknown) date) unknown) (unknown) (no (unknown) (unknown) Signed By: (units (unk nown) date) unknown) (unknown) (no (unknown) (unknown) Smoking Status: (units (unknown) date) Never smoker unknown) (unknown) (no (unknown) (unknown) Social History (units (unknown) date) (Updated 12/26/22 unknown) @ 13:14 by Olive Vargas RN) (unknown) (no (unknown) (unknown) Surgical History (units (unknown) date) (Updated 12/26/22 unknown) @ 13:09 by Olive Vargas RN) (unknown) (no (unknown) (unknown) This note may (units ( unknown) date) have been all or unknown) partially generated using voice recognition (unknown) (no (unknown) (unknown) Thyroid disease (units (unknown) date) unknown) (unknown) (no (unknown) (unknown) Tobacco Status (units (unknown) date) unknown) (unknown) (no (unknown) (unknown) Urology Office (units (unknown) date) Visit unknown) (unknown) (no (unknown) (unknown) 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) - recurrent UTI unknown) (unknown) (no (unknown) (unknown) Vitals (units (unkno wn) date) unknown) (unknown) (no (unknown) (unknown) Weight 190 lb (units ( unknown) date) unknown) (unknown) (no (unknown) (unknown) [History (units (unkno wn) date) Confirmed unknown) 12/26/22] (unknown) (no (unknown) (unknown) alcohol intake: (units (unknown) date) never unknown) (unknown) (no (unknown) (unknown) amlodipine 5 mg (units (unknown) date) tablet 5 mg PO unknown) DAILY 12/26/22 [History Confirmed 12/26/22] (unknown) (no (unknown) (unknown) armora thyroid (units (unknown) date) Allergy (Uncoded unknown) 12/26/22 13:07) (unknown) (no (unknown) (unknown) baclofen 10 mg (units (unknown) date) tablet 10 mg PO unknown) DAILY 12/26/22 [History Confirmed 12/26/22] (unknown) (no (unknown) (unknown) caffeine: Yes (units ( unknown) date) unknown) (unknown) (no (unknown) (unknown) dalfampridine 10 (units (unknown) date) mg tablet,extended unknown) release,12 hr 10 mg PO Q12H 12/26/22 (unknown) (no (unknown) (unknown) education level: (units (unknown) date) college unknown) (unknown) (no (unknown) (unknown) have occurred. If (units (unknown) date) there are any unknown) questions, please contact the Medical Records (unknown) (no (unknown) (unknown) levothyroxine 137 (units (unknown) date) mcg capsule 137 unknown) mcg PO DAILY 12/26/22 [History Confirmed (unknown) (no (unknown) (unknown) marital status: (units (unknown) date) unknown) (unknown) (no (unknown) (unknown) may occur. (units (unk nown) date) Occasional unknown) wrong-word or 'sound-alike' substitutions may have (unknown) (no (unknown) (unknown) number of (units (unkn own) date) children: 3 unknown) (unknown) (no (unknown) (unknown) occupational (units (u nknown) date) status: previously unknown) employed (unknown) (no (unknown) (unknown) occurred due to (units (unknown) date) the inherent unknown) limitations of voice recognition software. Please (unknown) (no (unknown) (unknown) oxybutynin (units (unk nown) date) chloride 5 mg unknown) tablet 5 mg PO DAILY 12/26/22 [History Confirmed (unknown) (no (unknown) (unknown) potassium (units (unkn own) date) chloride 20 mEq unknown) tablet,extended release 20 meq PO BID 12/26/22 (unknown) (no (unknown) (unknown) read the note (units ( unknown) date) carefully and unknown) recognize, using context, where these substitutions (unknown) (no (unknown) (unknown) software. (units (unkn own) date) Although every unknown) effort is made to edit content, cable installer repairer errors (unknown) (no (unknown) (unknown) tramadol 50 mg (units (unknown) date) tablet 50 mg PO unknown) BID PRN 12/26/22 [History Confirmed 12/26/22] (unknown) (no (unknown) (unknown) tzanidine Allergy (units (unknown) date) (Uncoded 12/26/22 unknown) 13:07) (unknown) (no (unknown) (unknown) vancomycin (units (unk nown) date) Allergy (Uncoded unknown) 12/26/22 13:07) Result panel 4 (unknown) (no (unknown) (unknown) (no value) (units (unk nown) date) unknown) (unknown) (no (unknown) (unknown) 12/26/22 [History (units (unknown) date) Confirmed unknown) 12/26/22] (unknown) (no (unknown) (unknown) 12/26/22 (units (unkno wn) date) unknown) (unknown) (no (unknown) (unknown) 12/26/22] (units (unkn own) date) unknown) (unknown) (no (unknown) (unknown) 13:19 (units (unkno wn) date) unknown) (unknown) (no (unknown) (unknown) [id number] (units (unkno wn) date) unknown) (unknown) (no (unknown) (unknown) Age/Sex: 62 / F (units (unknown) date) Date of Service: unknown) (unknown) (no (unknown) (unknown) All systems (units (un known) date) reviewed + are unknown) unremarkable except as noted in HPI and below (unknown) (no (unknown) (unknown) Allergies (units (unkn own) date) unknown) (unknown) (no (unknown) (unknown) [place], [place] (units ( unknown) date) [id number] unknown) (unknown) (no (unknown) (unknown) Attending Dr: (units ( unknown) date) Hang Andrade MD unknown) (unknown) (no (unknown) (unknown) BMI 37.0 (units (unkno wn) date) unknown) (unknown) (no (unknown) (unknown) BP 143/78 H (units (un known) date) unknown) (unknown) (no (unknown) (unknown) Blood Pressure (units (unknown) date) Location Lt radial unknown) (unknown) (no (unknown) (unknown) Brother Kidney (units (unknown) date) stones unknown) (unknown) (no (unknown) (unknown) Chronic UTI (units (un known) date) unknown) (unknown) (no (unknown) (unknown) Confirmed (units (unkn own) date) 12/26/22] unknown) (unknown) (no (unknown) (unknown) Const (units (unkno wn) date) unknown) (unknown) (no (unknown) (unknown) : 1960 (units (unknown) date) Acct:[id number] unknown) (unknown) (no (unknown) (unknown) Dept at (units (unkno wn) date) . unknown) (unknown) (no (unknown) (unknown) Documented By: (units (unknown) date) Hang Andrade MD unknown) 12/26/22 1306 (unknown) (no (unknown) (unknown) Draft (units (unkno wn) date) unknown) (unknown) (no (unknown) (unknown) Family History (units (unknown) date) (Reviewed 12/26/22 unknown) @ 14:20 by Hang Andrade MD) (unknown) (no (unknown) (unknown) Father Cancer (units ( unknown) date) unknown) (unknown) (no (unknown) (unknown) Gout (units (unkno wn) date) unknown) (unknown) (no (unknown) (unknown) H/O vaginal (units (un known) date) hysterectomy unknown) (unknown) (no (unknown) (unknown) Health Management (units (unknown) date) reviewed with unknown) patient: No (unknown) (no (unknown) (unknown) Health Management (units (unknown) date) unknown) (unknown) (no (unknown) (unknown) Height 5 ft (units (un known) date) unknown) (unknown) (no (unknown) (unknown) History of (units (unk nown) date) appendectomy unknown) (unknown) (no (unknown) (unknown) Hx of (units (unkno wn) date) cholecystectomy unknown) (unknown) (no (unknown) (unknown) Hyperlipidemia (units (unknown) date) unknown) (unknown) (no (unknown) (unknown) Hypertension (units (u nknown) date) unknown) (unknown) (no (unknown) (unknown) Intake Note: (units (u nknown) date) unknown) (unknown) (no (unknown) (unknown) Intake performed (units (unknown) date) by: unknown) Olive Vargas (unknown) (no (unknown) (unknown) Intake (units (unkno wn) date) unknown) (unknown) (no (unknown) (unknown) Intake- Clincial (units (unknown) date) Staff unknown) (unknown) (no (unknown) (unknown) Is last menstrual (units (unknown) date) period known: Yes unknown) (unknown) (no (unknown) (unknown) [facility] (units (unknown) date) unknown) (unknown) (no (unknown) (unknown) Kidney stones (units ( unknown) date) unknown) (unknown) (no (unknown) (unknown) Last Menstural (units (unknown) date) Cycle + Details unknown) (unknown) (no (unknown) (unknown) Loc: [facility] (units (unkno wn) date) unknown) (unknown) (no (unknown) (unknown) Medical History (units (unknown) date) (Reviewed 12/26/22 unknown) @ 14:20 by Hang Andrade MD) (unknown) (no (unknown) (unknown) Medications (units (un known) date) unknown) (unknown) (no (unknown) (unknown) Mother Cancer (units ( unknown) date) unknown) (unknown) (no (unknown) (unknown) Other Menstrual (units (unknown) date) Period: Other unknown) (1983) (unknown) (no (unknown) (unknown) PFSH (units (unkno wn) date) unknown) (unknown) (no (unknown) (unknown) Patient: (units (unkno wn) date) Awa Arce unknown) MR#: [id number] (unknown) (no (unknown) (unknown) Position Sitting (units (unknown) date) unknown) (unknown) (no (unknown) (unknown) 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 Pt's daughter is present. (unknown) (no (unknown) (unknown) Pulse 80 (units (unkno wn) date) unknown) (unknown) (no (unknown) (unknown) Pulse Source NIBP (units (unknown) date) unknown) (unknown) (no (unknown) (unknown) ROS (units (unkno wn) date) unknown) (unknown) (no (unknown) (unknown) Reason For Visit (units (unknown) date) unknown) (unknown) (no (unknown) (unknown) Respiration 16 (units (unknown) date) unknown) (unknown) (no (unknown) (unknown) Signed By: (units (unk nown) date) unknown) (unknown) (no (unknown) (unknown) Smoking Status: (units (unknown) date) Never smoker unknown) (unknown) (no (unknown) (unknown) Social History (units (unknown) date) (Reviewed 12/26/22 unknown) @ 14:20 by Hang Andrade MD) (unknown) (no (unknown) (unknown) Surgical History (units (unknown) date) (Reviewed 12/26/22 unknown) @ 14:20 by Hang Andrade MD) (unknown) (no (unknown) (unknown) This note may (units ( unknown) date) have been all or unknown) partially generated using voice recognition (unknown) (no (unknown) (unknown) Thyroid disease (units (unknown) date) unknown) (unknown) (no (unknown) (unknown) Tobacco Status (units (unknown) date) unknown) (unknown) (no (unknown) (unknown) [facility] Office (units (unknown) date) Visit unknown) (unknown) (no (unknown) (unknown) 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) - recurrent UTI unknown) (unknown) (no (unknown) (unknown) Vitals (units (unkno wn) date) unknown) (unknown) (no (unknown) (unknown) Weight 190 lb (units ( unknown) date) unknown) (unknown) (no (unknown) (unknown) [History (units (unkno wn) date) Confirmed unknown) 12/26/22] (unknown) (no (unknown) (unknown) alcohol intake: (units (unknown) date) never unknown) (unknown) (no (unknown) (unknown) amlodipine 5 mg (units (unknown) date) tablet 5 mg PO unknown) DAILY 12/26/22 [History Confirmed 12/26/22] (unknown) (no (unknown) (unknown) armora thyroid (units (unknown) date) Allergy (Uncoded unknown) 12/26/22 13:07) (unknown) (no (unknown) (unknown) ascorbate calcium (units (unknown) date) (vitamin C) 500 mg unknown) tablet 500 mg PO BID 12/26/22 [History (unknown) (no (unknown) (unknown) aspirin 81 mg (units ( unknown) date) tablet,delayed unknown) release 81 mg PO DAILY 12/26/22 [History Confirmed (unknown) (no (unknown) (unknown) baclofen 10 mg (units (unknown) date) tablet 10 mg PO unknown) DAILY 12/26/22 [History Confirmed 12/26/22] (unknown) (no (unknown) (unknown) caffeine: Yes (units ( unknown) date) unknown) (unknown) (no (unknown) (unknown) dalfampridine 10 (units (unknown) date) mg tablet,extended unknown) release,12 hr 10 mg PO Q12H 12/26/22 (unknown) (no (unknown) (unknown) diroximel (units (unkn own) date) fumarate 231 mg unknown) capsule,delayed release (Vumerity) 231 mg PO BID (unknown) (no (unknown) (unknown) education level: (units (unknown) date) college unknown) (unknown) (no (unknown) (unknown) have occurred. If (units (unknown) date) there are any unknown) questions, please contact the Medical Records (unknown) (no (unknown) (unknown) levothyroxine 137 (units (unknown) date) mcg capsule 137 unknown) mcg PO DAILY 12/26/22 [History Confirmed (unknown) (no (unknown) (unknown) marital status: (units (unknown) date) unknown) (unknown) (no (unknown) (unknown) may occur. (units (unk nown) date) Occasional unknown) wrong-word or 'sound-alike' substitutions may have (unknown) (no (unknown) (unknown) methenamine (units (un known) date) hippurate 1 gram unknown) tablet 1 g PO BID 12/26/22 [History Confirmed (unknown) (no (unknown) (unknown) number of (units (unkn own) date) children: 3 unknown) (unknown) (no (unknown) (unknown) occupational (units (u nknown) date) status: previously unknown) employed (unknown) (no (unknown) (unknown) occurred due to (units (unknown) date) the inherent unknown) limitations of voice recognition software. Please (unknown) (no (unknown) (unknown) oxybutynin (units (unk nown) date) chloride 5 mg unknown) tablet 5 mg PO DAILY 12/26/22 [History Confirmed (unknown) (no (unknown) (unknown) potassium (units (unkn own) date) chloride 20 mEq unknown) tablet,extended release 20 meq PO BID 12/26/22 (unknown) (no (unknown) (unknown) read the note (units ( unknown) date) carefully and unknown) recognize, using context, where these substitutions (unknown) (no (unknown) (unknown) software. (units (unkn own) date) Although every unknown) effort is made to edit content, cable installer repairer errors (unknown) (no (unknown) (unknown) tramadol 50 mg (units (unknown) date) tablet 50 mg PO unknown) BID PRN 12/26/22 [History Confirmed 12/26/22] (unknown) (no (unknown) (unknown) tzanidine Allergy (units (unknown) date) (Uncoded 12/26/22 unknown) 13:07) (unknown) (no (unknown) (unknown) vancomycin (units (unk nown) date) Allergy (Uncoded unknown) 12/26/22 13:07) Result panel 5 (unknown) (no (unknown) (unknown) (no value) (units (unk nown) date) unknown) (unknown) (no (unknown) (unknown) 12/26/22 [History (units (unknown) date) Confirmed unknown) 12/26/22] (unknown) (no (unknown) (unknown) 12/26/22 (units (unkno wn) date) unknown) (unknown) (no (unknown) (unknown) 12/26/22] (units (unkn own) date) unknown) (unknown) (no (unknown) (unknown) 13:19 (units (unkno wn) date) unknown) (unknown) (no (unknown) (unknown) [id number] (units (unkno wn) date) unknown) (unknown) (no (unknown) (unknown) Age/Sex: 62 / F (units (unknown) date) Date of Service: unknown) (unknown) (no (unknown) (unknown) All systems (units (un known) date) reviewed + are unknown) unremarkable except as noted in HPI and below (unknown) (no (unknown) (unknown) Allergies (units (unkn own) date) unknown) (unknown) (no (unknown) (unknown) [place], [place] (units ( unknown) date) [id number] unknown) (unknown) (no (unknown) (unknown) Attending Dr: (units ( unknown) date) Hang Andrade MD unknown) (unknown) (no (unknown) (unknown) BMI 37.0 (units (unkno wn) date) unknown) (unknown) (no (unknown) (unknown) BP 143/78 H (units (un known) date) unknown) (unknown) (no (unknown) (unknown) Blood Pressure (units (unknown) date) Location Lt radial unknown) (unknown) (no (unknown) (unknown) Brother Kidney (units (unknown) date) stones unknown) (unknown) (no (unknown) (unknown) Chief Complaint (units (unknown) date) unknown) (unknown) (no (unknown) (unknown) Chief Complaint: (units (unknown) date) Recurrent UTI unknown) (unknown) (no (unknown) (unknown) Chronic UTI (units (un known) date) unknown) (unknown) (no (unknown) (unknown) Confirmed (units (unkn own) date) 12/26/22] unknown) (unknown) (no (unknown) (unknown) Const (units (unkno wn) date) unknown) (unknown) (no (unknown) (unknown) : 1960 (units (unknown) date) Acct:[id number] unknown) (unknown) (no (unknown) (unknown) Dept at (units (unkno wn) date) . unknown) (unknown) (no (unknown) (unknown) Details: (units (unkno wn) date) unknown) (unknown) (no (unknown) (unknown) Documented By: (units (unknown) date) Hang Andrade MD unknown) 12/26/22 1306 (unknown) (no (unknown) (unknown) Draft (units (unkno wn) date) unknown) (unknown) (no (unknown) (unknown) Family History (units (unknown) date) (Reviewed 12/26/22 unknown) @ 14:20 by Hang Andrade MD) (unknown) (no (unknown) (unknown) Father Cancer (units ( unknown) date) unknown) (unknown) (no (unknown) (unknown) Gout (units (unkno wn) date) unknown) (unknown) (no (unknown) (unknown) H/O vaginal (units (un known) date) hysterectomy unknown) (unknown) (no (unknown) (unknown) HPI (units (unkno wn) date) unknown) (unknown) (no (unknown) (unknown) Health Management (units (unknown) date) reviewed with unknown) patient: No (unknown) (no (unknown) (unknown) Health Management (units (unknown) date) unknown) (unknown) (no (unknown) (unknown) Height 5 ft (units (un known) date) unknown) (unknown) (no (unknown) (unknown) History of (units (unk nown) date) appendectomy unknown) (unknown) (no (unknown) (unknown) Hx of (units (unkno wn) date) cholecystectomy unknown) (unknown) (no (unknown) (unknown) Hyperlipidemia (units (unknown) date) unknown) (unknown) (no (unknown) (unknown) Hypertension (units (u nknown) date) unknown) (unknown) (no (unknown) (unknown) Intake Note: (units (u nknown) date) unknown) (unknown) (no (unknown) (unknown) Intake performed (units (unknown) date) by: unknown) Olive Vargas (unknown) (no (unknown) (unknown) Intake (units (unkno wn) date) unknown) (unknown) (no (unknown) (unknown) Intake- Clincial (units (unknown) date) Staff unknown) (unknown) (no (unknown) (unknown) Is last menstrual (units (unknown) date) period known: Yes unknown) (unknown) (no (unknown) (unknown) [facility] (units (unknown) date) unknown) (unknown) (no (unknown) (unknown) Kidney stones (units ( unknown) date) unknown) (unknown) (no (unknown) (unknown) Last Menstural (units (unknown) date) Cycle + Details unknown) (unknown) (no (unknown) (unknown) Loc: [facility] (units (unkno wn) date) unknown) (unknown) (no (unknown) (unknown) Medical History (units (unknown) date) (Reviewed 12/26/22 unknown) @ 14:20 by Hang Andrade MD) (unknown) (no (unknown) (unknown) Medications (units (un known) date) unknown) (unknown) (no (unknown) (unknown) Mother Cancer (units ( unknown) date) unknown) (unknown) (no (unknown) (unknown) Other Menstrual (units (unknown) date) Period: Other unknown) (1983) (unknown) (no (unknown) (unknown) PFSH (units (unkno wn) date) unknown) (unknown) (no (unknown) (unknown) Awa is a very (units (unknown) date) pleasant unknown) 63-year-old female presenting today with her (unknown) (no (unknown) (unknown) Patient: (units (unkno wn) date) GildaAwa G unknown) MR#: [id number] (unknown) (no (unknown) (unknown) Position Sitting (units (unknown) date) unknown) (unknown) (no (unknown) (unknown) 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 Pt's daughter is present. (unknown) (no (unknown) (unknown) Pulse 80 (units (unkno wn) date) unknown) (unknown) (no (unknown) (unknown) Pulse Source NIBP (units (unknown) date) unknown) (unknown) (no (unknown) (unknown) ROS (units (unkno wn) date) unknown) (unknown) (no (unknown) (unknown) Reason For Visit (units (unknown) date) unknown) (unknown) (no (unknown) (unknown) Respiration 16 (units (unknown) date) unknown) (unknown) (no (unknown) (unknown) Signed By: (units (unk nown) date) unknown) (unknown) (no (unknown) (unknown) Smoking Status: (units (unknown) date) Never smoker unknown) (unknown) (no (unknown) (unknown) Social History (units (unknown) date) (Reviewed 12/26/22 unknown) @ 14:20 by Hang Andrade MD) (unknown) (no (unknown) (unknown) Surgical History (units (unknown) date) (Reviewed 12/26/22 unknown) @ 14:20 by Hang Andrade MD) (unknown) (no (unknown) (unknown) This note may (units ( unknown) date) have been all or unknown) partially generated using voice recognition (unknown) (no (unknown) (unknown) Thyroid disease (units (unknown) date) unknown) (unknown) (no (unknown) (unknown) Tobacco Status (units (unknown) date) unknown) (unknown) (no (unknown) (unknown) [facility] Office (units (unknown) date) Visit unknown) (unknown) (no (unknown) (unknown) 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) - recurrent UTI unknown) (unknown) (no (unknown) (unknown) Vitals (units (unkno wn) date) unknown) (unknown) (no (unknown) (unknown) Weight 190 lb (units ( unknown) date) unknown) (unknown) (no (unknown) (unknown) [History (units (unkno wn) date) Confirmed unknown) 12/26/22] (unknown) (no (unknown) (unknown) alcohol intake: (units (unknown) date) never unknown) (unknown) (no (unknown) (unknown) amlodipine 5 mg (units (unknown) date) tablet 5 mg PO unknown) DAILY 12/26/22 [History Confirmed 12/26/22] (unknown) (no (unknown) (unknown) armora thyroid (units (unknown) date) Allergy (Uncoded unknown) 12/26/22 13:07) (unknown) (no (unknown) (unknown) ascorbate calcium (units (unknown) date) (vitamin C) 500 mg unknown) tablet 500 mg PO BID 12/26/22 [History (unknown) (no (unknown) (unknown) aspirin 81 mg (units ( unknown) date) tablet,delayed unknown) release 81 mg PO DAILY 12/26/22 [History Confirmed (unknown) (no (unknown) (unknown) baclofen 10 mg (units (unknown) date) tablet 10 mg PO unknown) DAILY 12/26/22 [History Confirmed 12/26/22] (unknown) (no (unknown) (unknown) caffeine: Yes (units ( unknown) date) unknown) (unknown) (no (unknown) (unknown) dalfampridine 10 (units (unknown) date) mg tablet,extended unknown) release,12 hr 10 mg PO Q12H 12/26/22 (unknown) (no (unknown) (unknown) diroximel (units (unkn own) date) fumarate 231 mg unknown) capsule,delayed release (Vumerity) 231 mg PO BID (unknown) (no (unknown) (unknown) education level: (units (unknown) date) college unknown) (unknown) (no (unknown) (unknown) have occurred. If (units (unknown) date) there are any unknown) questions, please contact the Medical Records (unknown) (no (unknown) (unknown) levothyroxine 137 (units (unknown) date) mcg capsule 137 unknown) mcg PO DAILY 12/26/22 [History Confirmed (unknown) (no (unknown) (unknown) marital status: (units (unknown) date) unknown) (unknown) (no (unknown) (unknown) may occur. (units (unk nown) date) Occasional unknown) wrong-word or 'sound-alike' substitutions may have (unknown) (no (unknown) (unknown) methenamine (units (un known) date) hippurate 1 gram unknown) tablet 1 g PO BID 12/26/22 [History Confirmed (unknown) (no (unknown) (unknown) number of (units (unkn own) date) children: 3 unknown) (unknown) (no (unknown) (unknown) occupational (units (u nknown) date) status: previously unknown) employed (unknown) (no (unknown) (unknown) occurred due to (units (unknown) date) the inherent unknown) limitations of voice recognition software. Please (unknown) (no (unknown) (unknown) oxybutynin (units (unk nown) date) chloride 5 mg unknown) tablet 5 mg PO DAILY 12/26/22 [History Confirmed (unknown) (no (unknown) (unknown) potassium (units (unkn own) date) chloride 20 mEq unknown) tablet,extended release 20 meq PO BID 12/26/22 (unknown) (no (unknown) (unknown) read the note (units ( unknown) date) carefully and unknown) recognize, using context, where these substitutions (unknown) (no (unknown) (unknown) software. (units (unkn own) date) Although every unknown) effort is made to edit content, cable installer repairer errors (unknown) (no (unknown) (unknown) supportive (units (unk nown) date) daughter for unknown) opinion regarding ongoing and recurrent UTIs. (unknown) (no (unknown) (unknown) tramadol 50 mg (units (unknown) date) tablet 50 mg PO unknown) BID PRN 12/26/22 [History Confirmed 12/26/22] (unknown) (no (unknown) (unknown) tzanidine Allergy (units (unknown) date) (Uncoded 12/26/22 unknown) 13:07) (unknown) (no (unknown) (unknown) vancomycin (units (unk nown) date) Allergy (Uncoded unknown) 12/26/22 13:07) Result panel 6 (unknown) (no (unknown) (unknown) (no value) (units (unk nown) date) unknown) (unknown) (no (unknown) (unknown) (1) Chronic UTI: (units (unknown) date) unknown) (unknown) (no (unknown) (unknown) (2) Multiple (units (u nknown) date) sclerosis: unknown) (unknown) (no (unknown) (unknown) (3) (units (unkno wn) date) Nephrolithiasis: unknown) (unknown) (no (unknown) (unknown) (4) Bladder (units (un known) date) calculus: unknown) (unknown) (no (unknown) (unknown) (5) History of (units (unknown) date) nephrolithiasis: unknown) (unknown) (no (unknown) (unknown) (6) (units (unkno wn) date) Postmenopausal unknown) atrophic vaginitis: (unknown) (no (unknown) (unknown) 12/26/22 [History (units (unknown) date) Confirmed unknown) 12/26/22] (unknown) (no (unknown) (unknown) 12/26/22 (units (unkno wn) date) unknown) (unknown) (no (unknown) (unknown) 12/26/22] (units (unkn own) date) unknown) (unknown) (no (unknown) (unknown) 12/27/22 0803 (units ( unknown) date) unknown) (unknown) (no (unknown) (unknown) 12/27/22] (units (unkn own) date) unknown) (unknown) (no (unknown) (unknown) 1. Referral to (units (unknown) date) [facility] [place] [facility]. (unknown) (no (unknown) (unknown) 13:19 (units (unkno wn) date) unknown) (unknown) (no (unknown) (unknown) 2. Rx Osphena 60 (units (unknown) date) mg p.o. q.day unknown) common side effects, precautions, and intake (unknown) (no (unknown) (unknown) 3. UTI PREVENTION (units (unknown) date) GUIDELINES unknown) provided with explanation and verbal overview. (unknown) (no (unknown) (unknown) 3RF (units (unkno wn) date) unknown) (unknown) (no (unknown) (unknown) [id number] (units (unkno wn) date) unknown) (unknown) (no (unknown) (unknown) Age/Sex: 62 / F (units (unknown) date) Date of Service: unknown) (unknown) (no (unknown) (unknown) All systems (units (un known) date) reviewed + are unknown) unremarkable except as noted in HPI and below (unknown) (no (unknown) (unknown) Allergies (units (unkn own) date) unknown) (unknown) (no (unknown) (unknown) [place], [place] (units ( unknown) date) [id number] unknown) (unknown) (no (unknown) (unknown) Assessment + Plan (units (unknown) date) unknown) (unknown) (no (unknown) (unknown) Attending Dr: (units ( unknown) date) Hang Andrade MD unknown) (unknown) (no (unknown) (unknown) BMI 37.0 (units (unkno wn) date) unknown) (unknown) (no (unknown) (unknown) BP 143/78 H (units (un known) date) unknown) (unknown) (no (unknown) (unknown) Bladder calculus (units (unknown) date) unknown) (unknown) (no (unknown) (unknown) Blood Pressure (units (unknown) date) Location Lt radial unknown) (unknown) (no (unknown) (unknown) Brother Kidney (units (unknown) date) stones unknown) (unknown) (no (unknown) (unknown) CT KUB 12/12/2022 (units (unknown) date) is reviewed and unknown) explained to the patient and her daughter (unknown) (no (unknown) (unknown) Chest-equal and (units (unknown) date) unlabored unknown) expansion bilaterally. No abnormal sounds (unknown) (no (unknown) (unknown) Chief Complaint (units (unknown) date) unknown) (unknown) (no (unknown) (unknown) Chief Complaint: (units (unknown) date) Recurrent UTI unknown) (unknown) (no (unknown) (unknown) Chronic UTI (units (un known) date) unknown) (unknown) (no (unknown) (unknown) Code(s): (units (unkno wn) date) unknown) (unknown) (no (unknown) (unknown) Confirmed (units (unkn own) date) 12/26/22] unknown) (unknown) (no (unknown) (unknown) Const (units (unkno wn) date) unknown) (unknown) (no (unknown) (unknown) : 1960 (units (unknown) date) Acct:[id number] unknown) (unknown) (no (unknown) (unknown) Dept at (units (unkno wn) date) . unknown) (unknown) (no (unknown) (unknown) Details: (units (unkno wn) date) unknown) (unknown) (no (unknown) (unknown) Documented By: (units (unknown) date) Hang Andrade MD unknown) 12/26/22 1306 (unknown) (no (unknown) (unknown) Encounter (units (unkn own) date) documentation, Rx unknown) submission, and billing-10 minutes (unknown) (no (unknown) (unknown) Exam Narrative (units (unknown) date) unknown) (unknown) (no (unknown) (unknown) Exam Narrative: (units (unknown) date) unknown) (unknown) (no (unknown) (unknown) Exam (units (unkno wn) date) unknown) (unknown) (no (unknown) (unknown) Explained that (units (unknown) date) placement unknown) suprapubic tube would not change her challenges (unknown) (no (unknown) (unknown) [id number] (units (u nknown) date) encounter-40 unknown) minutes (unknown) (no (unknown) (unknown) Family History (units (unknown) date) (Reviewed 12/26/22 unknown) @ 14:20 by Hang Andrade MD) (unknown) (no (unknown) (unknown) Father Cancer (units ( unknown) date) unknown) (unknown) (no (unknown) (unknown) G35 - Multiple (units (unknown) date) sclerosis unknown) (unknown) (no (unknown) (unknown) Gout (units (unkno wn) date) unknown) (unknown) (no (unknown) (unknown) H/O vaginal (units (un known) date) hysterectomy unknown) (unknown) (no (unknown) (unknown) HPI (units (unkno wn) date) unknown) (unknown) (no (unknown) (unknown) Health Management (units (unknown) date) reviewed with unknown) patient: No (unknown) (no (unknown) (unknown) Health Management (units (unknown) date) unknown) (unknown) (no (unknown) (unknown) Heart-normal (units (u nknown) date) sinus rhythm. unknown) Heart tones are distant. (unknown) (no (unknown) (unknown) Height 5 ft (units (un known) date) unknown) (unknown) (no (unknown) (unknown) History of (units (unk nown) date) appendectomy unknown) (unknown) (no (unknown) (unknown) History of (units (unk nown) date) nephrolithiasis unknown) (unknown) (no (unknown) (unknown) Chito lift in (units ( unknown) date) their home. Suzy unknown) home health has been changing her Friedman catheter (unknown) (no (unknown) (unknown) Hx of (units (unkno wn) date) cholecystectomy unknown) (unknown) (no (unknown) (unknown) Hyperlipidemia (units (unknown) date) unknown) (unknown) (no (unknown) (unknown) Hypertension (units (u nknown) date) unknown) (unknown) (no (unknown) (unknown) Intake Note: (units (u nknown) date) unknown) (unknown) (no (unknown) (unknown) Intake performed (units (unknown) date) by: unknown) Olive Vargas (unknown) (no (unknown) (unknown) Intake (units (unkno wn) date) unknown) (unknown) (no (unknown) (unknown) Intake- Clincial (units (unknown) date) Staff unknown) (unknown) (no (unknown) (unknown) Is last menstrual (units (unknown) date) period known: Yes unknown) (unknown) (no (unknown) (unknown) [facility] (units (unknown) date) unknown) (unknown) (no (unknown) (unknown) Kidney stones (units ( unknown) date) unknown) (unknown) (no (unknown) (unknown) Last Menstural (units (unknown) date) Cycle + Details unknown) (unknown) (no (unknown) (unknown) Loc: [facility] (units (unkno wn) date) unknown) (unknown) (no (unknown) (unknown) Medical History (units (unknown) date) (Updated 12/27/22 unknown) @ 07:56 by Hang Andrade MD) (unknown) (no (unknown) (unknown) Medical (units (unkno wn) date) illustrations. unknown) Explained rationale and indications for interventional (unknown) (no (unknown) (unknown) Medications (units (un known) date) unknown) (unknown) (no (unknown) (unknown) Medications: (units (u nknown) date) unknown) (unknown) (no (unknown) (unknown) Most recent urine (units (unknown) date) culture provided unknown) to [facility] at this consultation is (unknown) (no (unknown) (unknown) Mother Cancer (units ( unknown) date) unknown) (unknown) (no (unknown) (unknown) N20.0 - Calculus (units (unknown) date) of kidney unknown) (unknown) (no (unknown) (unknown) N21.0 - Calculus (units (unknown) date) in bladder unknown) (unknown) (no (unknown) (unknown) N39.0 - Urinary (units (unknown) date) tract infection, unknown) site not specified (unknown) (no (unknown) (unknown) N95.2 - (units (unkno wn) date) Postmenopausal unknown) atrophic vaginitis (unknown) (no (unknown) (unknown) Nephrolithiasis (units (unknown) date) unknown) (unknown) (no (unknown) (unknown) New (units (unkno wn) date) unknown) (unknown) (no (unknown) (unknown) Other Menstrual (units (unknown) date) Period: Other unknown) (1983) (unknown) (no (unknown) (unknown) Other imaging (units ( unknown) date) studies have unknown) indicated a markedly enlarged heart. I had requested (unknown) (no (unknown) (unknown) PFSH (units (unkno wn) date) unknown) (unknown) (no (unknown) (unknown) Awa is a very (units (unknown) date) pleasant unknown) 63-year-old female presenting today with her (unknown) (no (unknown) (unknown) Patient has had a (units (unknown) date) diagnosis of MS unknown) since approximately 2010. She is had (unknown) (no (unknown) (unknown) Patient: (units (unkno wn) date) Awa Arce G unknown) MR#: [id number] (unknown) (no (unknown) (unknown) Plan (units (unkno wn) date) unknown) (unknown) (no (unknown) (unknown) Pleasant, (units (unkn own) date) morbidly obese unknown) female in wheelchair. No acute distress. 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 Pt's daughter is present. (unknown) (no (unknown) (unknown) Pulse 80 (units (unkno wn) date) unknown) (unknown) (no (unknown) (unknown) Pulse Source NIBP (units (unknown) date) unknown) (unknown) (no (unknown) (unknown) ROS (units (unkno wn) date) unknown) (unknown) (no (unknown) (unknown) Reason For Visit (units (unknown) date) unknown) (unknown) (no (unknown) (unknown) Respiration 16 (units (unknown) date) unknown) (unknown) (no (unknown) (unknown) Review of (units (unkn own) date) clinical chart no unknown) history, patient data, including 47 pages of (unknown) (no (unknown) (unknown) Reviewed (units (unkno wn) date) findings, unknown) discussed impression and recommended above plan and follow (unknown) (no (unknown) (unknown) Signed By: (units (unk nown) date) <Electronically unknown) signed by Hang Andrade MD> (unknown) (no (unknown) (unknown) Signed (units (unkno wn) date) unknown) (unknown) (no (unknown) (unknown) Smoking Status: (units (unknown) date) Never smoker unknown) (unknown) (no (unknown) (unknown) Social History (units (unknown) date) (Reviewed 12/26/22 unknown) @ 14:20 by Hang Andrade MD) (unknown) (no (unknown) (unknown) Status: Acute (units ( unknown) date) unknown) (unknown) (no (unknown) (unknown) Surgical History (units (unknown) date) (Reviewed 12/26/22 unknown) @ 14:20 by Hang Andrade MD) (unknown) (no (unknown) (unknown) The patient has (units (unknown) date) history of morbid unknown) obesity and is nonambulatory. 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 Other (units (unknown) date) cultures dating unknown) back to 08/11/2020 have also grown those to (unknown) (no (unknown) (unknown) alcohol intake: (units (unknown) date) never unknown) (unknown) (no (unknown) (unknown) amlodipine 5 mg (units (unknown) date) tablet 5 mg PO unknown) DAILY 12/26/22 [History Confirmed 12/26/22] (unknown) (no (unknown) (unknown) appreciated. (units (u nknown) date) unknown) (unknown) (no (unknown) (unknown) armora thyroid (units (unknown) date) Allergy (Uncoded unknown) 12/26/22 13:07) (unknown) (no (unknown) (unknown) ascorbate calcium (units (unknown) date) (vitamin C) 500 mg unknown) tablet 500 mg PO BID 12/26/22 [History (unknown) (no (unknown) (unknown) aspirin 81 mg (units ( unknown) date) tablet,delayed unknown) release 81 mg PO DAILY 12/26/22 [History Confirmed (unknown) (no (unknown) (unknown) ay occur. (units (unkn own) date) Occasional unknown) wrong-word or 'sound-alike' substitutions may have (unknown) (no (unknown) (unknown) baclofen 10 mg (units (unknown) date) tablet 10 mg PO unknown) DAILY 12/26/22 [History Confirmed 12/26/22] (unknown) (no (unknown) (unknown) caffeine: Yes (units ( unknown) date) unknown) (unknown) (no (unknown) (unknown) cardiac (units (unkno wn) date) evaluation and unknown) clearance prior to encounter today. Patient refused (unknown) (no (unknown) (unknown) clinical chart no (units (unknown) date) history imaging unknown) studies microbiology reports, and provider to (unknown) (no (unknown) (unknown) dalfampridine 10 (units (unknown) date) mg tablet,extended unknown) release,12 hr 10 mg PO Q12H 12/26/22 (unknown) (no (unknown) (unknown) diroximel (units (unkn own) date) fumarate 231 mg unknown) capsule,delayed release (Vumerity) 231 mg PO BID (unknown) (no (unknown) (unknown) education level: (units (unknown) date) college unknown) (unknown) (no (unknown) (unknown) every 2-3 weeks. (units (unknown) date) unknown) (unknown) (no (unknown) (unknown) from 03/30/2022. (units (unknown) date) The culture grew unknown) both Klebsiella pneumoniae and Pseudomonas (unknown) (no (unknown) (unknown) guidelines. (units (un known) date) unknown) (unknown) (no (unknown) (unknown) habitus (units (unkno wn) date) immobility is not unknown) practical. The issue, and request may be reconsidered (unknown) (no (unknown) (unknown) have occurred. If (units (unknown) date) there are any unknown) questions, please contact the Medical Records (unknown) (no (unknown) (unknown) history of (units (unk nown) date) recurrent stone unknown) disease. She request placement suprapubic catheter. (unknown) (no (unknown) (unknown) hysterectomy in (units (unknown) date) 1983 for abnormal unknown) bleeding. She is status post bilateral (unknown) (no (unknown) (unknown) indwelling Friedman (units (unknown) date) catheter over the unknown) last 5 years. She is status post vaginal (unknown) (no (unknown) (unknown) instructions (units (u nknown) date) explained. unknown) (unknown) (no (unknown) (unknown) levothyroxine 137 (units (unknown) date) mcg capsule 137 unknown) mcg PO DAILY 12/26/22 [History Confirmed (unknown) (no (unknown) (unknown) marital status: (units (unknown) date) unknown) (unknown) (no (unknown) (unknown) methenamine (units (un known) date) hippurate 1 gram unknown) tablet 1 g PO BID 12/26/22 [History Confirmed (unknown) (no (unknown) (unknown) modalities that (units (unknown) date) will likely be unknown) multiple staged and require percutaneous access (unknown) (no (unknown) (unknown) must administer (units (unknown) date) with food, unknown) preferably a high-fat meal 60 mg PO DAILY 90 tabs (unknown) (no (unknown) (unknown) nephrolithotomy (units (unknown) date) in 2017. unknown) (unknown) (no (unknown) (unknown) number of (units (unkn own) date) children: 3 unknown) (unknown) (no (unknown) (unknown) occupational (units (u nknown) date) status: previously unknown) employed (unknown) (no (unknown) (unknown) occurred due to (units (unknown) date) the inherent unknown) limitations of voice recognition software. Please (unknown) (no (unknown) (unknown) ospemifene (units (unk nown) date) (Osphena) unknown) (unknown) (no (unknown) (unknown) ospemifene 60 mg (units (unknown) date) tablet (Osphena) unknown) 60 mg PO DAILY #90 tabs 12/27/22 [Rx Confirmed (unknown) (no (unknown) (unknown) oxybutynin (units (unk nown) date) chloride 5 mg unknown) tablet 5 mg PO DAILY 12/26/22 [History Confirmed (unknown) (no (unknown) (unknown) place of (units (unkno wn) date) intravaginal unknown) topical estradiol replacement therapy which given body (unknown) (no (unknown) (unknown) potassium (units (unkn own) date) chloride 20 mEq unknown) tablet,extended release 20 meq PO BID 12/26/22 (unknown) (no (unknown) (unknown) provider (units (unkno wn) date) telephonic unknown) conference for encounter-30 minutes (unknown) (no (unknown) (unknown) read the note (units ( unknown) date) carefully and unknown) recognize, using context, where these substitutions (unknown) (no (unknown) (unknown) regarding (units (unkn own) date) recurrent UTI. unknown) Explained rationale and indications for Osphena in (unknown) (no (unknown) (unknown) salpingo-oophorec (units (unknown) date) jennifer in 1988. She unknown) is status post left percutaneous (unknown) (no (unknown) (unknown) software. (units (unkn own) date) Although every unknown) effort is made to edit content, cable installer repairer errors m (unknown) (no (unknown) (unknown) species. (units (unkno wn) date) unknown) (unknown) (no (unknown) (unknown) stating ?my heart (units (unknown) date) is okay?. unknown) (unknown) (no (unknown) (unknown) supportive (units (unk nown) date) daughter for unknown) opinion regarding ongoing and recurrent UTIs and (unknown) (no (unknown) (unknown) today. There is (units (unknown) date) finding of a right unknown) staghorn calculus measuring [address] (unknown) (no (unknown) (unknown) tramadol 50 mg (units (unknown) date) tablet 50 mg PO unknown) BID PRN 12/26/22 [History Confirmed 12/26/22] (unknown) (no (unknown) (unknown) tzanidine Allergy (units (unknown) date) (Uncoded 12/26/22 unknown) 13:07) (unknown) (no (unknown) (unknown) units (units (unkno wn) date) additionally there unknown) was an 8 mm bladder calculus. (unknown) (no (unknown) (unknown) units. There is a (units (unknown) date) 1.1 cm left renal unknown) pelvic calculus measuring [address] (unknown) (no (unknown) (unknown) up. Explained the (units (unknown) date) complexity of her unknown) anatomy and stone locations utilizing (unknown) (no (unknown) (unknown) vancomycin (units (unk nown) date) Allergy (Uncoded unknown) 12/26/22 13:07) (unknown) (no (unknown) (unknown) when she is stone (units (unknown) date) free and adopt see unknown) above prescription and prevention (unknown) (no (unknown) (unknown) which is not (units (u nknown) date) available at unknown) [facility]. Social History date description facility 2022-12-26 00:00 Never smoked tobacco (finding) [facility] Vital Signs date measurement value units 2022-12-26 00:00 BMI 37.0 kg/m2 2022-12-26 00:00 BP_diastolic 78 mmHg 2022-12-26 00:00 BP_systolic 143 mmHg 2022-12-26 00:00 heart_rate 80 /min 2022-12-26 00:00 height_metric 152.4 cm 2022-12-26 00:00 height_standard 60 in 2022-12-26 00:00 respiration_rate 16 /min 2022-12-26 00:00 weight_metric 86.18 kg 2022-12-26 00:00 weight_standard 189.99 lb
[2023-02-27 16:16] VITALS: BP 154/78
== END 2023-02-27 16:16 | disposition home or self-care (01) ==
LOC: EDUNIT# → ED 14:50
DX: B02.9 Zoster without complications (principal)
CPT/HCPCS: 96372; 99283; A9270; J1170; Q0162

== ENCOUNTER 2023-02-27 16:15 | Outpatient (CLI) | payer MEDICARE | END 2023-02-27 23:59 | disposition home or self-care (01) | LOC: EMS 16:15 | PROVIDERS: ATTEND Emergency Medicine | DX: E66.01 Morbid (severe) obesity due to excess calories (principal); Z74.01 Bed confinement status | CPT/HCPCS: A0425; A0428 ==

== ENCOUNTER 2023-03-23 08:00 | Outpatient (CLI) | payer MEDICARE ==
[2023-03-23 20:25] LABS: BILIRUBIN,URINE NEGATIVE (NEGATIVE); GLUCOSE, URINE (UA) NEGATIVE (NEGATIVE); KETONES,URINE (UA) NEGATIVE (NEGATIVE); LEUKOCYTE ESTERASE, URINE LARGE (NEGATIVE); NITRITE,URINE NEGATIVE (NEGATIVE); OCCULT BLOOD,URINE LARGE (NEGATIVE); PROTEIN,URINE NEGATIVE (NEGATIVE); UROBILINOGEN,URINE 0.2 (NORMAL) E.U./dL (NORMAL)
[2023-03-23 20:29] LABS: CLARITY,URINE CLOUDY (CLEAR)
[2023-03-23 20:39] LABS: BACTERIA,URINE Many /HPF (None Seen); RBC,URINE TNTC /HPF (0-5); SQUAMOUS EPITHELIAL CELL,UR RARE Squamous (<= Few); WBC,URINE >25 /HPF (0-5)
== END 2023-03-23 23:59 | disposition home or self-care (01) ==
LOC: LAB 08:00
PROVIDERS: ATTEND Physician Assistant Surgical
DX: N20.0 Calculus of kidney (principal)
CPT/HCPCS: 81001; 81003; 87077; 87086; 87181

== ENCOUNTER 2023-04-16 10:57 | Outpatient (CLI) | payer MEDICARE | END 2023-04-16 10:58 | disposition critical access hospital (66) | LOC: EMS 10:57 | DX: N23 Unspecified renal colic (principal); R31.9 Hematuria, unspecified | CPT/HCPCS: A0425; A0429 ==

== ENCOUNTER 2023-04-16 11:11 | Emergency (ER) | payer MEDICARE ==
[2023-04-16] MEDS ORDERED: SODIUM CHLORIDE 0.9% 1,000 ML IV STA (11:26)
[2023-04-16] MEDS ORDERED: KETOROLAC 15 MG/ML VIAL IVP STA ×2 (11:26→15:17)
[2023-04-16] MEDS ORDERED: LIDOCAINE-MPF 2% 7 ML in SODIUM CHLORIDE 0.9% 50 ML IV STA ×2 (11:26→18:32)
--- NOTE | 2023-04-16 11:28 | ED Physician Documentation ---
PD HPI ABD PAIN - Stated complaint Stated Complaint: R FLANK PX - History obtained from History obtained from: Patient, EMS - Additional information Additional information: 62-year-old woman with history of recurrent renal colic, multiple sclerosis. She had an open kidney stone removal, also with I think a trans ureteral kidney stone removal at the [facility] on the of this month. She has a Friedman in place. No longer has a nephrostomy. She presents with worsening hematuria with right abdominal and flank pain for the last couple of days not associated with nausea or fevers. 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 HEENT: Tonsil/Adenoidectomy - Present Medications Home Medications: Ambulatory Orders Medication Instructions Recorded Confirmed Baclofen [Lioresal] 10 mg PO BID 08/05/22 02/27/23 Baclofen [Lioresal] 20 mg PO HS 08/05/22 02/27/23 Dalfampridine [Ampyra] 10 mg PO BID 08/05/22 02/27/23 Levothyroxine Sodium [Synthroid] 1 tab PO DAILY 08/05/22 02/27/23 Oxybutynin [Ditropan] 5 mg PO TID 08/05/22 02/27/23 Potassium Chloride 2 tab PO DAILY 08/05/22 02/27/23 amLODIPine [Norvasc] 5 mg PO DAILY 08/05/22 02/27/23 Amitriptyline [Elavil] 10 mg PO QPM 20 Days #20 tablet 02/27/23 Ibuprofen [Motrin] 1 tablet PO Q8H PRN 02/27/23 02/27/23 Magnesium Oxide [Magnesium] 400 mg PO DAILY 02/27/23 02/27/23 Mupirocin 2% Oint [Bactroban 2% 1 applic TOP TID #15 gm 02/27/23 Oint] Ondansetron Odt [Zofran] 4 mg TL Q6H PRN #20 tablet 02/27/23 Ospemifene [Osphena] 60 mg PO DAILY 02/27/23 02/27/23 Valacyclovir HCl [Valtrex] 1,000 mg PO TID 7 Days #20 tablet 02/27/23 dexAMETHasone [Decadron] 4 mg PO DAILY #5 tablet 02/27/23 oxyCODONE [Roxicodone] 5 mg PO Q8H PRN #20 tablet 02/27/23 traMADol [Ultram] 50 mg PO TID PRN 02/27/23 02/27/23 - Allergies Allergies/Adverse Reactions: Allergies Allergy/AdvReac Type Severity Reaction Status Date / Time latex Allergy Rash Verified 02/27/23 15:03 thyroid, pork Allergy Respiratory Verified 09/07/22 21:37 [From [place] Thyroid] tizanidine Allergy Respiratory Verified 09/07/22 21:37 vancomycin Allergy Rash Verified 02/27/23 15:03 - Social History Does the pt smoke?: No Smoking Status: Never smoker Does the pt drink ETOH?: No Does the pt have substance abuse?: No - Immunizations Immunizations are current?: No - POLST Patient has POLST: No PD ED PE NORMAL - Vitals Vital signs reviewed: Yes - General General: Alert and oriented X 3, No acute distress, Other (Slurred speech from MS) - Cardiac Cardiac: RRR, No murmur - Respiratory Respiratory: No respiratory distress, Clear bilaterally - Abdomen Abdomen: Other (Mild right abdominal tenderness without surgical signs) - Female Female : Other (Friedman in place with opaque gross hematuria) - Neuro Neuro: Alert and oriented X 3 Results - Vitals Vitals: Vital Signs - 24 hr 04/16/23 04/16/23 11:38 16:09 Temperature 36.8 C 36.9 C Heart Rate 96 92 Respiratory 16 18 Rate Blood Pressure 161/78 H 162/83 H O2 Saturation 98 99 Oxygen O2 Source Room air - Labs Labs: Laboratory Tests 04/16/23 04/16/23 04/16/23 11:35 11:35 12:00 WBC 11.5 H RBC 4.62 Hgb 13.5 Hct 42.4 MCV 91.8 MCH 29.2 MCHC 31.8 L RDW 14.0 Plt Count 510 H MPV 8.4 Neut # (Auto) 10.0 H Lymph # (Auto) 0.5 L [place] # (Auto) 0.6 Eos # (Auto) 0.3 Baso # (Auto) 0.1 Absolute Nucleated RBC 0.00 Nucleated RBC % 0.0 Sodium 141 Potassium 4.3 Chloride 108 Carbon Dioxide 26 Anion Gap 7.0 BUN 30 H Creatinine 0.5 Estimated GFR (MDRD) 125 Glucose 140 H Calcium 9.8 Urine Color RED/BLOODY Urine Clarity CLOUDY Urine pH 6.5 Ur Specific [place] 1.025 Urine Protein >=300 H Urine Glucose (UA) NEGATIVE Urine Ketones NEGATIVE Urine Occult Blood LARGE H Urine Nitrite POSITIVE H Urine Bilirubin NEGATIVE Urine Urobilinogen 1 (NORMAL) Ur Leukocyte Esterase SMALL H Urine RBC TNTC H Urine WBC 6-10 H Ur Squamous Epith Cells RARE Squamous Urine Bacteria Moderate H Ur Microscopic Review INDICATED Urine Culture Comments INDICATED SARS-CoV-2 (PCR) 04/16/23 13:10 WBC RBC Hgb Hct MCV MCH MCHC RDW Plt Count MPV Neut # (Auto) Lymph # (Auto) [place] # (Auto) Eos # (Auto) Baso # (Auto) Absolute Nucleated RBC Nucleated RBC % Sodium Potassium Chloride Carbon Dioxide Anion Gap BUN Creatinine Estimated GFR (MDRD) Glucose Calcium Urine Color Urine Clarity Urine pH Ur Specific [place] Urine Protein Urine Glucose (UA) Urine Ketones Urine Occult Blood Urine Nitrite Urine Bilirubin Urine Urobilinogen Ur Leukocyte Esterase Urine RBC Urine WBC Ur Squamous Epith Cells Urine Bacteria Ur Microscopic Review Urine Culture Comments SARS-CoV-2 (PCR) NOT DETECTED PD Medical Decision Making - ED course ED course: 62-year-old woman who has severe MS with no physical mobility and known history of kidney stones and is about 10 days out from right sided open stone removal and now presents with right-sided abdominal pain and recurrent gross hematuria. CT showing right infrarenal hemorrhage and hydronephrosis due to clot. Has mild elevation in white count on CBC. BMP showing elevated BUN, otherwise normal except modest hyperglycemia. Urinalysis with positive nitrite and small leukocyte esterase and large blood. Call placed to [facility] to consult with on-call urology, her surgeon was Dr. Tinoco, at 12:48 PM. Around 4 PM I spoke with Dr. Brock, urology at [facility]. He reviewed the case, and felt like she could probably go home but then wanted to see what their bed availability was and said they will call us back. Subsequently the hospitalist called me and accepted the patient, Dr. Ogden. There may be delay to a bed. Departure - Departure Disposition: 02 Transfer Acute Care Hosp Clinical Impression: Pyelonephritis, Ureteral obstruction
[2023-04-16 11:42] LABS: BASOPHILS # (AUTO) 0.1 10^3/uL (0.0-0.1); BASOPHILS % (AUTO) 0.7 %; EOSINOPHILS # (AUTO) 0.3 10^3/uL (0.0-0.7); EOSINOPHILS % (AUTO) 2.3 %; HCT - HEMATOCRIT 42.4 % (37.0-47.0); HGB - HEMOGLOBIN 13.5 g/dL (12.0-16.0); LYMPHOCYTES # (AUTO) 0.5 10^3/uL (1.5-3.5); LYMPHOCYTES % (AUTO) 3.9 %; MEAN CORPUSCULAR HEMOGLOBIN 29.2 pg (27.0-31.0); MEAN CORPUSCULAR HGB CONC 31.8 g/dL (32.0-36.0); MEAN CORPUSCULAR VOLUME 91.8 fL (81.0-99.0); MEAN PLATELET VOLUME 8.4 fL (7.9-10.8); MONOCYTES # (AUTO) 0.6 10^3/uL (0.0-1.0); MONOCYTES % (AUTO) 5.6 %; NEUTROPHILS % (AUTO) 87.1 %; PLT - PLATELET COUNT 510 10^3/uL (130-450); RED BLOOD COUNT 4.62 10^6/uL (4.20-5.40); WHITE BLOOD COUNT 11.5 x10^3/uL (4.8-10.8)
[2023-04-16 11:56] LABS: CALCIUM 9.8 mg/dL (8.5-10.3); CREATININE 0.5 mg/dL (0.4-1.0); POTASSIUM 4.3 mmol/L (3.5-5.0)
[2023-04-16 12:36] LABS: GLUCOSE, URINE (UA) NEGATIVE (NEGATIVE); KETONES,URINE (UA) NEGATIVE (NEGATIVE); LEUKOCYTE ESTERASE, URINE SMALL (NEGATIVE); NITRITE,URINE POSITIVE (NEGATIVE); OCCULT BLOOD,URINE LARGE (NEGATIVE); PH,URINE 6.5 PH (5.0-7.5); PROTEIN,URINE >=300 mg/dL (NEGATIVE); UROBILINOGEN,URINE 1 (NORMAL) E.U./dL (NORMAL)
[2023-04-16 12:37] LABS: CLARITY,URINE CLOUDY (CLEAR)
--- NOTE | 2023-04-16 12:38 | CT Report ---
PROCEDURE: ABDOMEN/PELVIS WO INDICATIONS: r flank [pn TECHNIQUE: Noncontrast 5 mm thick sections acquired from the diaphragms to the symphysis. 5 mm coronal and sagi ttal reformats were then performed. For radiation dose reduction, the following was used: automated exposure control, adjustment of mA and/or kV according to patient size. COMPARISON: 12/12/2022 FINDINGS: Image quality: Excellent. Lung bases and heart: Small right pleural effusion. Patchy septal thickening and atelectatic changes at both lung bases. Calcified right infrahilar and parenchymal granulomas. Liver: No solid mass. Gallbladder and biliary tree: Surgically absent gallbladder. Nondilated biliary tree. Spleen: Punctate granulomas present. Normal splenic size. Pancreas: No pancreatic ductal dilation. Adrenals: No adrenal nodule. Kidneys and ureters: There is moderate right hydronephrosis. The intrarenal and proximal ureteral col lecting system is distended with high density material consistent with blood products. There is taper ing of the ureter at the midportion in the distal right ureter is decompressed. There are no associat ed calcifications. There is mild right perinephric fat stranding with no associated perinephric fluid collection or subcapsular hematoma. There are no retained intrarenal calculi. The left kidney is relatively diminutive and contains a few nonobstructing intrarenal calcifications and a prominent ureteropelvic junction calcification measuring 1.4 x 2.1 x 0.6 cm. Left ureter is nor mal. Bowel and peritoneum: Stomach and small bowel loops are normal. There is a moderate to large quantity of retained solid stool in the colon. Lymph nodes: No central or retroperitoneal adenopathy. Vessels: No infrarenal aortic aneurysm. PELVIS Reproductive organs: Uterus ovaries not well seen. Bladder: Urinary bladder decompressed with a Friedman catheter. Air anteriorly in the urinary bladder. Pelvic lymph nodes: No pelvic adenopathy by size criteria. Bones: Superior endplate depression of T12. Exaggerated lumbar lordosis. Other: No significant ventral or inguinal hernia. IMPRESSION: 1. Right intrarenal hemorrhage and moderate hydroureteronephrosis, likely due to clot and mid ureter. No associated ureteral calcifications. 2. Several left intrarenal calculi without hydronephrosis, largest left UPJ calculus measures up to 2 .1 cm and has migrated from the pelvis to the UPJ since the prior study. 3. Retained solid stool. Reviewed by: Radha Theodore MD on 04/16/2023 11:37 AM [facility] Approved by: Radha Theodore MD on 04/16/2023 11:37 AM [facility] Station ID: [id number]
[2023-04-16 12:40] LABS: BILIRUBIN,URINE NEGATIVE (NEGATIVE); ICTOTEST,URINE NEGATIVE
[2023-04-16 12:51] LABS: RBC,URINE TNTC /HPF (0-5)
[2023-04-16 12:52] LABS: BACTERIA,URINE Moderate /HPF (None Seen); SQUAMOUS EPITHELIAL CELL,UR RARE Squamous (<= Few)
[2023-04-16] MEDS ORDERED: cefTRIAXone 1 GM VIAL IVP STA (13:25)
[2023-04-16] MEDS ORDERED: ACETAMINOPHEN 500 MG TABLET PO STA (15:17)
[2023-04-16 16:10] VITALS: BP 162/83
[2023-04-16] MEDS ORDERED: GABAPENTIN 100 MG CAPSULE PO STA (18:43)
[2023-04-16] MEDS ORDERED: LIDOCAINE-MPF 2% 5 ML VIAL ONE (18:58)
== END 2023-04-16 19:34 | disposition short-term general hospital (02) ==
LOC: EDUNIT# → ED 11:11
DX: N13.1 Hydronephrosis with ureteral stricture, not elsewhere classified (principal); N12 Tubulo-interstitial nephritis, not specified as acute or chronic; G35 Multiple sclerosis; Z20.822 Contact with and (suspected) exposure to COVID-19
CPT/HCPCS: 36415; 74176; 80048; 81001; 85025; 87086; 87181; 87635; 96365; 96375; 96376; 99284; 99285; A9270; J7040; 81003

== ENCOUNTER 2023-04-16 19:05 | Outpatient (CLI) | payer MEDICARE | END 2023-04-16 19:06 | disposition short-term general hospital (02) | LOC: EMS 19:05 | PROVIDERS: ATTEND Emergency Medicine | DX: N12 Tubulo-interstitial nephritis, not specified as acute or chronic (principal); R31.9 Hematuria, unspecified; R53.1 Weakness | CPT/HCPCS: A0425; A0426 ==

== ENCOUNTER 2023-04-26 12:00 | Outpatient (CLI) | payer MEDICARE ==
[2023-04-26 12:38] LABS: ALBUMIN 3.4 g/dL (3.2-5.5); ALBUMIN/GLOBULIN RATIO 1.1 (1.0-2.2); BILIRUBIN,TOTAL 0.9 mg/dL (0.2-1.0); CALCIUM 9.4 mg/dL (8.5-10.3); CREATININE 0.4 mg/dL (0.4-1.0); POTASSIUM 4.4 mmol/L (3.5-5.0); TOTAL PROTEIN 6.6 g/dL (6.7-8.2)
== END 2023-04-26 12:01 | disposition home or self-care (01) ==
LOC: LAB.R 12:00
PROVIDERS: ATTEND Family Medicine
DX: N13.39 Other hydronephrosis (principal)
CPT/HCPCS: 80053

== ENCOUNTER 2023-05-05 15:27 | Outpatient (CLI) | payer MEDICARE | END 2023-05-05 15:28 | disposition home or self-care (01) | LOC: LAB.R 15:27 | PROVIDERS: ATTEND Urology | DX: N20.0 Calculus of kidney (principal); Z86.19 Personal history of other infectious and parasitic diseases | CPT/HCPCS: 87086; 87181 ==

== ENCOUNTER 2023-06-24 08:00 | Outpatient (CLI) | payer MEDICARE ==
[2023-06-24 14:00] LABS: BILIRUBIN,URINE NEGATIVE (NEGATIVE); GLUCOSE, URINE (UA) NEGATIVE (NEGATIVE); KETONES,URINE (UA) NEGATIVE (NEGATIVE); LEUKOCYTE ESTERASE, URINE LARGE (NEGATIVE); NITRITE,URINE NEGATIVE (NEGATIVE); OCCULT BLOOD,URINE LARGE (NEGATIVE); PROTEIN,URINE NEGATIVE (NEGATIVE); UROBILINOGEN,URINE 0.2 (NORMAL) E.U./dL (NORMAL)
[2023-06-24 14:03] LABS: CLARITY,URINE SL. CLOUDY (CLEAR)
[2023-06-24 14:08] LABS: SQUAMOUS EPITHELIAL CELL,UR MOD Squamous (<= Few); WBC CLUMPS,URINE PRESENT; WBC,URINE >25 /HPF (0-5)
[2023-06-24 14:09] LABS: BACTERIA,URINE Few /HPF (None Seen)
== END 2023-06-24 23:59 | disposition home or self-care (01) ==
LOC: LAB.R 08:00
PROVIDERS: ATTEND Family Medicine
DX: R82.998 Other abnormal findings in urine (principal)
CPT/HCPCS: 81001; 87086

== ENCOUNTER 2023-07-06 08:00 | Outpatient (CLI) | payer MEDICARE ==
[2023-07-06 16:32] LABS: BILIRUBIN,URINE NEGATIVE (NEGATIVE); GLUCOSE, URINE (UA) NEGATIVE (NEGATIVE); KETONES,URINE (UA) NEGATIVE (NEGATIVE); LEUKOCYTE ESTERASE, URINE MODERATE (NEGATIVE); NITRITE,URINE POSITIVE (NEGATIVE); OCCULT BLOOD,URINE LARGE (NEGATIVE); PROTEIN,URINE 30 mg/dL (NEGATIVE); UROBILINOGEN,URINE 0.2 (NORMAL) E.U./dL (NORMAL)
[2023-07-06 16:37] LABS: CLARITY,URINE HAZY (CLEAR)
[2023-07-06 16:39] LABS: WBC,URINE >25 /HPF (0-5)
[2023-07-06 16:40] LABS: BACTERIA,URINE Moderate /HPF (None Seen); RBC,URINE TNTC /HPF (0-5); SQUAMOUS EPITHELIAL CELL,UR FEW Squamous (<= Few)
== END 2023-07-06 23:58 | disposition home or self-care (01) ==
LOC: LAB.R 08:00
PROVIDERS: ATTEND Registered Nurse
DX: N20.0 Calculus of kidney (principal)
CPT/HCPCS: 81001

== ENCOUNTER 2023-07-18 08:00 | Outpatient (CLI) | payer MEDICARE ==
[2023-07-18 17:11] LABS: ALBUMIN 4.1 g/dL (3.2-5.5); ALBUMIN/GLOBULIN RATIO 1.5 (1.0-2.2); ALKALINE PHOSPHATASE 90 IU/L (42-121); ALT ALANINE AMINOTRANSFERASE 30 IU/L (10-60); AST ASPARTATE AMINOTRANSFERASE 16 IU/L (10-42); BILIRUBIN,TOTAL 0.6 mg/dL (0.2-1.0); BUN - BLOOD UREA NITROGEN 27 mg/dL (6-20); CARBON DIOXIDE - CO2 31 mmol/L (21-32); CHLORIDE 104 mmol/L (101-111); CHOL/HDL RATIO 4.9 (<4.4); CHOLESTEROL 253 mg/dL; CREATININE 0.4 mg/dL (0.6-1.3); GFR - MDRD 162 (>89); GLUCOSE 107 mg/dL (74-104); HDL CHOLESTEROL 52 mg/dL; LDL CHOLESTEROL,CALCULATED 150 mg/dL; LDL/HDL RATIO 2.9 (<4.4); POTASSIUM 3.9 mmol/L (3.5-4.5); SODIUM 140 mmol/L (135-145); TOTAL PROTEIN 6.9 g/dL (6.4-8.9); TRIGLYCERIDES 255 mg/dL (48-352); VLDL CHOLESTEROL 51 mg/dL
[2023-07-18 17:20] LABS: THYROID STIMULATING HORMONE 0.76 uIU/mL (0.34-5.60)
== END 2023-07-18 23:59 | disposition home or self-care (01) ==
LOC: LAB.R 08:00
PROVIDERS: ATTEND Family Medicine
DX: Z79.899 Other long term (current) drug therapy (principal); G35 Multiple sclerosis; E03.9 Hypothyroidism, unspecified
CPT/HCPCS: 80053; 80061; 83721; 84443

== ENCOUNTER 2023-09-01 15:06 | Outpatient (CLI) | payer MEDICARE ==
[2023-09-01 15:13] LABS: BASOPHILS # (AUTO) 0.1 10^3/uL (0.0-0.1); BASOPHILS % (AUTO) 1.3 %; EOSINOPHILS # (AUTO) 0.3 10^3/uL (0.0-0.7); EOSINOPHILS % (AUTO) 6.1 %; HCT - HEMATOCRIT 42.1 % (37.0-47.0); HGB - HEMOGLOBIN 13.5 g/dL (12.0-16.0); LYMPHOCYTES # (AUTO) 0.5 10^3/uL (1.5-3.5); MEAN CORPUSCULAR HEMOGLOBIN 28.2 pg (27.0-31.0); MEAN CORPUSCULAR HGB CONC 32.1 g/dL (32.0-36.0); MEAN CORPUSCULAR VOLUME 88.1 fL (81.0-99.0); MEAN PLATELET VOLUME 9.2 fL (7.9-10.8); MONOCYTES # (AUTO) 0.3 10^3/uL (0.0-1.0); NEUTROPHILS # (AUTO) 3.4 10^3/uL (1.5-6.6); NEUTROPHILS % (AUTO) 74.4 %; PLT - PLATELET COUNT 450 10^3/uL (130-450); RED BLOOD COUNT 4.78 10^6/uL (4.20-5.40); RED CELL DISTRIBUTION WIDTH 14.1 % (12.0-15.0); WHITE BLOOD COUNT 4.6 x10^3/uL (4.8-10.8)
[2023-09-01 16:42] LABS: ALBUMIN 4.5 g/dL (3.2-5.5); ALBUMIN/GLOBULIN RATIO 1.7 (1.0-2.2); BILIRUBIN,TOTAL 0.5 mg/dL (0.2-1.0); CALCIUM 10.3 mg/dL (8.5-10.3); CREATININE 0.4 mg/dL (0.6-1.3); POTASSIUM 3.9 mmol/L (3.5-4.5); TOTAL PROTEIN 7.2 g/dL (6.4-8.9)
== END 2023-09-01 15:07 | disposition home or self-care (01) ==
LOC: LAB.R 15:06
PROVIDERS: ATTEND Registered Nurse
DX: N20.0 Calculus of kidney (principal); E87.6 Hypokalemia; K76.0 Fatty (change of) liver, not elsewhere classified
CPT/HCPCS: 80053; 85025

== ENCOUNTER 2023-09-12 08:00 | Outpatient (CLI) | payer MEDICARE ==
[2023-09-14 11:06] LABS: BILIRUBIN,URINE NEGATIVE (NEGATIVE); CLARITY,URINE CLEAR (CLEAR); GLUCOSE, URINE (UA) NEGATIVE (NEGATIVE); KETONES,URINE (UA) NEGATIVE (NEGATIVE); LEUKOCYTE ESTERASE, URINE LARGE (NEGATIVE); NITRITE,URINE POSITIVE (NEGATIVE); OCCULT BLOOD,URINE LARGE (NEGATIVE); PROTEIN,URINE 100 mg/dL (NEGATIVE); UROBILINOGEN,URINE 0.2 (NORMAL) E.U./dL (NORMAL)
== END 2023-09-12 08:01 | disposition home or self-care (01) ==
LOC: LAB.R 08:00
PROVIDERS: ATTEND Registered Nurse
DX: T83.511A Infection and inflammatory reaction due to indwelling urethral catheter, initial encounter (principal); N39.0 Urinary tract infection, site not specified
CPT/HCPCS: 81003

== ENCOUNTER 2023-09-29 15:51 | Outpatient (CLI) | payer MEDICARE ==
[2023-09-29 16:08] LABS: BILIRUBIN,URINE NEGATIVE (NEGATIVE); GLUCOSE, URINE (UA) NEGATIVE (NEGATIVE); KETONES,URINE (UA) NEGATIVE (NEGATIVE); LEUKOCYTE ESTERASE, URINE LARGE (NEGATIVE); NITRITE,URINE POSITIVE (NEGATIVE); OCCULT BLOOD,URINE LARGE (NEGATIVE); PH,URINE 6.5 PH (5.0-7.5); PROTEIN,URINE 100 mg/dL (NEGATIVE); UROBILINOGEN,URINE 0.2 (NORMAL) E.U./dL (NORMAL)
[2023-09-29 16:20] LABS: BACTERIA,URINE Many /HPF (None Seen); CASTS, URINE 11-25 Hyaline Casts /LPF; CLARITY,URINE CLOUDY (CLEAR); MUCUS,URINE Marked Strands; RBC,URINE TNTC /HPF (0-5); SQUAMOUS EPITHELIAL CELL,UR MANY Squamous (<= Few); WBC,URINE >25 /HPF (0-5)
== END 2023-09-29 15:52 | disposition home or self-care (01) ==
LOC: LAB.R 15:51
DX: N20.0 Calculus of kidney (principal); Z46.6 Encounter for fitting and adjustment of urinary device; B37.9 Candidiasis, unspecified
CPT/HCPCS: 81001; 87086

== ENCOUNTER 2023-10-12 08:00 | Outpatient (CLI) | payer MEDICARE ==
[2023-10-12 12:05] LABS: BILIRUBIN,URINE NEGATIVE (NEGATIVE); GLUCOSE, URINE (UA) NEGATIVE (NEGATIVE); KETONES,URINE (UA) TRACE mg/dL (NEGATIVE); LEUKOCYTE ESTERASE, URINE LARGE (NEGATIVE); NITRITE,URINE POSITIVE (NEGATIVE); OCCULT BLOOD,URINE LARGE (NEGATIVE); PROTEIN,URINE 100 mg/dL (NEGATIVE); UROBILINOGEN,URINE 0.2 (NORMAL) E.U./dL (NORMAL)
[2023-10-12 12:21] LABS: BACTERIA,URINE Few /HPF (None Seen); CLARITY,URINE CLOUDY (CLEAR); RBC,URINE TNTC /HPF (0-5); SQUAMOUS EPITHELIAL CELL,UR RARE Squamous (<= Few); WBC,URINE >25 /HPF (0-5)
== END 2023-10-12 23:59 | disposition home or self-care (01) ==
LOC: LAB.R 08:00
PROVIDERS: ATTEND Nurse Practitioner Adult Health
DX: R41.82 Altered mental status, unspecified (principal); R53.1 Weakness; R35.89 Other polyuria; R30.0 Dysuria
CPT/HCPCS: 81001; 87077; 87086; 87181

== ENCOUNTER 2023-11-23 08:00 | Outpatient (CLI) | payer MEDICARE, MEDICAID ==
[2023-11-23 16:46] LABS: BILIRUBIN,URINE NEGATIVE (NEGATIVE); CLARITY,URINE CLOUDY (CLEAR); GLUCOSE, URINE (UA) NEGATIVE (NEGATIVE); KETONES,URINE (UA) 40 mg/dL (NEGATIVE); LEUKOCYTE ESTERASE, URINE LARGE (NEGATIVE); NITRITE,URINE POSITIVE (NEGATIVE); OCCULT BLOOD,URINE SMALL (NEGATIVE); PH,URINE 8.5 PH (5.0-7.5); PROTEIN,URINE 30 mg/dL (NEGATIVE); UROBILINOGEN,URINE 0.2 (NORMAL) E.U./dL (NORMAL)
[2023-11-23 16:57] LABS: AMORPHOUS SEDIMENT,UR Moderate /LPF; BACTERIA,URINE Moderate /HPF (None Seen); CRYSTALS,URINE >50 Triple Phos /LPF; MUCUS,URINE Moderate Strands; RBC,URINE 0-5 /HPF (0-5); SQUAMOUS EPITHELIAL CELL,UR RARE Squamous (<= Few)
== END 2023-11-23 23:59 | disposition home or self-care (01) ==
LOC: LAB.R 08:00
PROVIDERS: ATTEND Registered Nurse
DX: N20.0 Calculus of kidney (principal); Z87.440 Personal history of urinary (tract) infections
CPT/HCPCS: 81001; 81003

== ENCOUNTER 2023-11-27 14:27 | Outpatient (CLI) | payer MEDICARE, MEDICAID ==
[2023-11-27 14:37] LABS: BILIRUBIN,URINE NEGATIVE (NEGATIVE); GLUCOSE, URINE (UA) NEGATIVE (NEGATIVE); KETONES,URINE (UA) NEGATIVE (NEGATIVE); LEUKOCYTE ESTERASE, URINE LARGE (NEGATIVE); NITRITE,URINE POSITIVE (NEGATIVE); OCCULT BLOOD,URINE SMALL (NEGATIVE); PROTEIN,URINE NEGATIVE (NEGATIVE); UROBILINOGEN,URINE 0.2 (NORMAL) E.U./dL (NORMAL)
[2023-11-27 14:39] LABS: CLARITY,URINE SL. CLOUDY (CLEAR)
== END 2023-11-27 14:28 | disposition home or self-care (01) ==
LOC: LAB.R 14:27
PROVIDERS: ATTEND Nurse Practitioner Adult Health
DX: R41.82 Altered mental status, unspecified (principal); R53.1 Weakness; R35.89 Other polyuria; R30.0 Dysuria
CPT/HCPCS: 81003; 87077; 87086; 87181

== ENCOUNTER 2023-12-08 15:21 | Outpatient (CLI) | payer MEDICARE, MEDICAID ==
[2023-12-08 15:35] LABS: BASOPHILS # (AUTO) 0.1 10^3/uL (0.0-0.1); BASOPHILS % (AUTO) 1.1 %; EOSINOPHILS # (AUTO) 0.2 10^3/uL (0.0-0.7); EOSINOPHILS % (AUTO) 3.3 %; HCT - HEMATOCRIT 38.5 % (37.0-47.0); HGB - HEMOGLOBIN 12.9 g/dL (12.0-16.0); LYMPHOCYTES # (AUTO) 0.5 10^3/uL (1.5-3.5); LYMPHOCYTES % (AUTO) 9.3 %; MEAN CORPUSCULAR HEMOGLOBIN 28.4 pg (27.0-31.0); MEAN CORPUSCULAR HGB CONC 33.5 g/dL (32.0-36.0); MEAN CORPUSCULAR VOLUME 84.8 fL (81.0-99.0); MONOCYTES # (AUTO) 0.4 10^3/uL (0.0-1.0); NEUTROPHILS # (AUTO) 4.5 10^3/uL (1.5-6.6); NEUTROPHILS % (AUTO) 78.9 %; PLT - PLATELET COUNT 443 10^3/uL (130-450); RED BLOOD COUNT 4.54 10^6/uL (4.20-5.40); RED CELL DISTRIBUTION WIDTH 13.4 % (12.0-15.0); WHITE BLOOD COUNT 5.7 x10^3/uL (4.8-10.8)
[2023-12-08 15:59] LABS: ALBUMIN 3.9 g/dL (3.2-5.5); ALBUMIN/GLOBULIN RATIO 1.7 (1.0-2.2); BILIRUBIN,TOTAL 0.4 mg/dL (0.2-1.0); CALCIUM 9.9 mg/dL (8.5-10.3); CREATININE 0.4 mg/dL (0.6-1.3); POTASSIUM 3.3 mmol/L (3.5-4.5); TOTAL PROTEIN 6.2 g/dL (6.4-8.9)
== END 2023-12-08 15:22 | disposition home or self-care (01) ==
LOC: LAB.R 15:21
PROVIDERS: ATTEND Psychiatry & Neurology Neurology
DX: G35 Multiple sclerosis (principal)
CPT/HCPCS: 80053; 85025

== ENCOUNTER 2023-12-27 13:00 | Outpatient (CLI) | payer MEDICARE, MEDICAID ==
[2023-12-28 11:25] LABS: CLARITY,URINE CLOUDY (CLEAR); LEUKOCYTE ESTERASE, URINE LARGE (NEGATIVE); NITRITE,URINE POSITIVE (NEGATIVE); OCCULT BLOOD,URINE LARGE (NEGATIVE); PROTEIN,URINE NEGATIVE (NEGATIVE); UROBILINOGEN,URINE 0.2 (NORMAL) E.U./dL (NORMAL)
[2023-12-28 11:26] LABS: BILIRUBIN,URINE NEGATIVE (NEGATIVE); GLUCOSE, URINE (UA) NEGATIVE (NEGATIVE); KETONES,URINE (UA) 15 mg/dL (NEGATIVE)
== END 2023-12-27 13:01 | disposition home or self-care (01) ==
LOC: LAB.R 13:00
PROVIDERS: ATTEND Nurse Practitioner Family
DX: N39.0 Urinary tract infection, site not specified (principal)
CPT/HCPCS: 81003; 87077; 87086; 87181

== ENCOUNTER 2024-01-29 14:03 | Outpatient (CLI) | payer MEDICARE, MEDICAID ==
[2024-01-29 14:18] LABS: BILIRUBIN,URINE NEGATIVE (NEGATIVE); GLUCOSE, URINE (UA) NEGATIVE (NEGATIVE); KETONES,URINE (UA) NEGATIVE (NEGATIVE); LEUKOCYTE ESTERASE, URINE LARGE (NEGATIVE); NITRITE,URINE NEGATIVE (NEGATIVE); OCCULT BLOOD,URINE LARGE (NEGATIVE); PROTEIN,URINE 30 mg/dL (NEGATIVE); UROBILINOGEN,URINE 0.2 (NORMAL) E.U./dL (NORMAL)
[2024-01-29 14:20] LABS: CLARITY,URINE CLOUDY (CLEAR)
[2024-01-29 19:02] LABS: AMORPHOUS SEDIMENT,UR Marked /LPF; BACTERIA,URINE Many /HPF (None Seen); RBC,URINE TNTC /HPF (0-5); SQUAMOUS EPITHELIAL CELL,UR RARE Squamous (<= Few); WBC,URINE >25 /HPF (0-5)
[2024-01-29 19:03] LABS: CRYSTALS,URINE 11-25 Triple Phos /LPF
== END 2024-01-29 14:04 | disposition home or self-care (01) ==
LOC: LAB.R 14:03
PROVIDERS: ATTEND Nurse Practitioner Family
DX: N39.0 Urinary tract infection, site not specified (principal)
CPT/HCPCS: 81003; 87086

== ENCOUNTER 2024-02-09 11:32 | Outpatient (CLI) | payer MEDICARE, MEDICAID ==
[2024-02-09 11:38] LABS: BILIRUBIN,URINE NEGATIVE (NEGATIVE); GLUCOSE, URINE (UA) NEGATIVE (NEGATIVE); KETONES,URINE (UA) NEGATIVE (NEGATIVE); LEUKOCYTE ESTERASE, URINE LARGE (NEGATIVE); NITRITE,URINE POSITIVE (NEGATIVE); OCCULT BLOOD,URINE TRACE-INTA (NEGATIVE); PH,URINE 6.5 PH (5.0-7.5); PROTEIN,URINE NEGATIVE (NEGATIVE); UROBILINOGEN,URINE 0.2 (NORMAL) E.U./dL (NORMAL)
[2024-02-09 11:47] LABS: BACTERIA,URINE Many /HPF (None Seen); CLARITY,URINE SL. CLOUDY (CLEAR); SQUAMOUS EPITHELIAL CELL,UR FEW Squamous (<= Few); WBC,URINE >25 /HPF (0-5)
== END 2024-02-09 11:33 | disposition home or self-care (01) ==
LOC: LAB.R 11:32
PROVIDERS: ATTEND Nurse Practitioner Family
DX: N39.0 Urinary tract infection, site not specified (principal)
CPT/HCPCS: 81001; 87077; 87086; 87181

== ENCOUNTER 2024-03-06 10:45 | Outpatient (CLI) | payer MEDICARE, MEDICAID ==
--- NOTE | 2024-03-07 16:33 | CT Report ---
PROCEDURE: Abdomen/Pelvis WO INDICATIONS: HIST OF KIDNEY STONES TECHNIQUE: A CT scan of the abdomen and pelvis was performed without the use of intravenous contrast. Images we re recorded and evaluated at appropriate window settings. Reformats: coronal and sagittal. For radiat ion dose reduction, the following was used: automated exposure control, adjustment of mA and/or kV ac cording to patient size. COMPARISON: CT abdomen pelvis, 04/08/2023. Ultrasound retroperitoneal, 06/30/2026 FINDINGS: Image quality: Diagnostic. Kidneys and ureters: There are bilateral renal calculi. Right kidney and ureter: There are multiple stones in right kidney. A large staghorn stone measures 1 3 x [address] density 501 HU. Trace renal pelviectasis and perinephric stranding. No ure teral stones. Left kidney and ureter: A 6 mm stone seen in left kidney. Trace renal pelviectasis and perinephric st randing. No ureteral stones. Bladder: Friedman catheter within bladder. No bladder stones. Latter is contracted. Normal wall thicknes s. Lower chest: Bibasilar scars and atelectasis. Liver: No contour-deforming mass. Mildly enlarged. Mild hepatic steatosis. Gallbladder and biliary tree: Gallbladder is surgically removed. No biliary dilation. Spleen: No splenomegaly. There are calcified granulomas in spleen. Pancreas: No pancreatic ductal dilation. Adrenals: No adrenal nodule. No hydronephrosis. No renal cystic lesion which requires follow up. No solid mass. Stomach, bowel and peritoneum: No bowel distension. No pathologic free fluid. There is mesenteric str anding. Lymph nodes: There is a 1.6 cm rim calcified nodule in the right side of the pelvis, most likely a ca lcified lymph node. Vessels: No infrarenal aortic aneurysm. PELVIS Reproductive organs: Unremarkable uterus is absent. Ovaries are not seen no pathological free fluid.. Pelvic lymph nodes: No pelvic adenopathy by size criteria. Bones: No aggressive osseous abnormality. Mild chronic central depression of T12, unchanged. Scoliosi s. Spondylitic changes in lumbar spine. Other: There is a perirenal mass posterior to the anus measuring 5.6 x 3.2 cm. Small fat-containing paraumbilical hernia. IMPRESSION: 1. Nephrolithiasis bilaterally. There is trace renal pelviectasis. No obstructive stones are identifi ed. 2. Mild hepatomegaly and hepatic steatosis. 3. Mesenteric stranding consistent with mesenteric panniculitis. 4. Calcified granulomas in spleen. 5. Paratracheal mass. Recommend correlation with findings on direct visualization. 6. Bibasilar scars and atelectasis. Reviewed by: Rene Sims MD on 03/07/2024 4:31 PM PDT Approved by: Rene Sims MD on 03/07/2024 4:31 PM PDT Station ID: [id number]
== END 2024-03-06 10:46 | disposition home or self-care (01) ==
LOC: DI 10:45
PROVIDERS: ATTEND Urology
DX: Z87.442 Personal history of urinary calculi (principal); N20.0 Calculus of kidney; N13.30 Unspecified hydronephrosis; D73.89 Other diseases of spleen; R93.89 Abnormal findings on diagnostic imaging of other specified body structures; J98.11 Atelectasis

== ENCOUNTER 2024-04-15 14:45 | Outpatient (CLI) | payer MEDICARE, MEDICAID | END 2024-04-15 23:59 | disposition home or self-care (01) | LOC: EMS 14:45 | PROVIDERS: ATTEND Physician Assistant | DX: G35 Multiple sclerosis (principal); G81.90 Hemiplegia, unspecified affecting unspecified side; E66.01 Morbid (severe) obesity due to excess calories; Z74.01 Bed confinement status | CPT/HCPCS: A0425; A0428 ==

== ENCOUNTER 2024-05-14 08:00 | Outpatient (CLI) | payer MEDICARE, MEDICAID ==
[2024-05-14 17:23] LABS: BILIRUBIN,URINE NEGATIVE (NEGATIVE); GLUCOSE, URINE (UA) NEGATIVE (NEGATIVE); KETONES,URINE (UA) NEGATIVE (NEGATIVE); LEUKOCYTE ESTERASE, URINE LARGE (NEGATIVE); NITRITE,URINE POSITIVE (NEGATIVE); OCCULT BLOOD,URINE MODERATE (NEGATIVE); PROTEIN,URINE TRACE mg/dL (NEGATIVE); UROBILINOGEN,URINE 0.2 (NORMAL) E.U./dL (NORMAL)
[2024-05-14 17:27] LABS: CLARITY,URINE CLOUDY (CLEAR)
[2024-05-14 18:03] LABS: BACTERIA,URINE Many /HPF (None Seen); SQUAMOUS EPITHELIAL CELL,UR MANY Squamous (<= Few); WBC,URINE >25 /HPF (0-5)
== END 2024-05-14 23:59 | disposition home or self-care (01) ==
LOC: LAB.R 08:00
PROVIDERS: ATTEND Nurse Practitioner Family
DX: N39.0 Urinary tract infection, site not specified (principal)
CPT/HCPCS: 81001; 87086

== ENCOUNTER 2024-05-15 08:00 | Outpatient (CLI) | payer MEDICARE, MEDICAID ==
[2024-05-15 18:31] LABS: BILIRUBIN,URINE NEGATIVE (NEGATIVE); GLUCOSE, URINE (UA) NEGATIVE (NEGATIVE); KETONES,URINE (UA) NEGATIVE (NEGATIVE); LEUKOCYTE ESTERASE, URINE LARGE (NEGATIVE); NITRITE,URINE POSITIVE (NEGATIVE); OCCULT BLOOD,URINE TRACE-INTA (NEGATIVE); PROTEIN,URINE TRACE mg/dL (NEGATIVE); UROBILINOGEN,URINE 0.2 (NORMAL) E.U./dL (NORMAL)
[2024-05-15 18:53] LABS: BACTERIA,URINE Many /HPF (None Seen); CLARITY,URINE CLOUDY (CLEAR); RBC,URINE None Seen /HPF (0-5); SQUAMOUS EPITHELIAL CELL,UR FEW Squamous (<= Few); WBC CLUMPS,URINE PRESENT; WBC,URINE >25 /HPF (0-5)
== END 2024-05-15 23:59 | disposition home or self-care (01) ==
LOC: LAB.R 08:00
PROVIDERS: ATTEND Nurse Practitioner Family
DX: N39.0 Urinary tract infection, site not specified (principal)
CPT/HCPCS: 81001; 87077; 87086; 87181

== ENCOUNTER 2024-05-16 08:00 | Outpatient (CLI) | payer MEDICARE, MEDICAID ==
[2024-05-17 00:03] LABS: BACTERIAL VAGINOSIS DNA NEGATIVE (NEGATIVE); CANDIDA GLABRATA DNA NEGATIVE (NEGATIVE); CANDIDA GROUP DNA POSITIVE (NEGATIVE); CANDIDA KRUSEI DNA POSITIVE (NEGATIVE); TRICHOMONAS VAGINALIS DNA NEGATIVE (NEGATIVE)
== END 2024-05-16 23:59 | disposition home or self-care (01) ==
LOC: LAB.R 08:00
PROVIDERS: ATTEND Registered Nurse
DX: N76.0 Acute vaginitis (principal)
CPT/HCPCS: 81514

== ENCOUNTER 2024-08-01 08:00 | Outpatient (CLI) | payer MEDICARE, MEDICAID ==
[2024-08-01 18:12] LABS: BILIRUBIN,URINE NEGATIVE (NEGATIVE); GLUCOSE, URINE (UA) NEGATIVE (NEGATIVE); KETONES,URINE (UA) NEGATIVE (NEGATIVE); LEUKOCYTE ESTERASE, URINE LARGE (NEGATIVE); NITRITE,URINE POSITIVE (NEGATIVE); OCCULT BLOOD,URINE LARGE (NEGATIVE); PH,URINE 7.5 PH (5.0-7.5); PROTEIN,URINE NEGATIVE (NEGATIVE); UROBILINOGEN,URINE 0.2 (NORMAL) E.U./dL (NORMAL)
[2024-08-01 18:15] LABS: CLARITY,URINE CLOUDY (CLEAR)
[2024-08-01 18:26] LABS: RBC,URINE TNTC /HPF (0-5); SQUAMOUS EPITHELIAL CELL,UR FEW Squamous (<= Few); WBC,URINE >25 /HPF (0-5)
[2024-08-01 18:27] LABS: AMORPHOUS SEDIMENT,UR Moderate /LPF; BACTERIA,URINE Many /HPF (None Seen); EPITHELIAL CELLS,UR FEW Transitional /HPF (<= Few)
== END 2024-08-01 23:59 | disposition home or self-care (01) ==
LOC: LAB.N 08:00
DX: N31.9 Neuromuscular dysfunction of bladder, unspecified (principal); R82.998 Other abnormal findings in urine
CPT/HCPCS: 81001; 81003; 87077; 87086; 87181